=== PATIENT | female | born 1955 | race Caucasian/White ===

== ENCOUNTER 2022-10-02 18:24 | Emergency (ER) | payer OTHER, SELFPAY ==
--- NOTE | ~2022-10-02 | XR_ITS ---
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 RESULT: Lines, tubes, and devices: None. Lungs and pleura: Diffuse reticulonodular opacities. Peripheral right midlung and/or pleural scarrin g, along the minor fissure. Cardiomediastinal silhouette: Stable. Other: No acute osseous or upper abdominal finding. IMPRESSION: Pulmonary opacities may represent chronic or recurrent bronchiolitis, as can be seen with atypical in fection, asthma, aspiration, and small airways disease. Reviewed, dictated and finalized at location [facility]. [facility] SECRETARY IMPRESSION: Pulmonary opacities may represent chronic or recurrent bronchiolitis, as can be seen with atypical infection, asthma, aspiration, and small airways disease.
[2022-10-02 18:33] VITALS: BP 135/84; PULSE 84; RESP 18; TEMP 36.2; O2SAT 98
[2022-10-02 18:35] VITALS: BP 135/84; PULSE 84; RESP 18; TEMP 36.2; O2SAT 95
--- NOTE | 2022-10-02 18:37 | ED.URI ---
HPI - URI/Sore Throat General Chief Complaint: Upper Respiratory Infection Stated Complaint: cough, abody aches, headache Time Seen by Provider: 10/02/22 18:31 Source: patient Mode of arrival: ambulatory Limitations: no limitations History of Present Illness HPI Narrative: 67-year-old female with a history of asthma / COPD artery disease status post stents in 2019, dyslipidemia, hypertension presents to the ER 7 day history of -- cough with mucopurulent sputum -- shortness of breath with wheezing -- headache -- body ache -- fever since yesterday. MD elicited complaint: fever, cough and nasal congestion Pertinent past history: COPD and asthma Onset (ago): day(s) ( started 7 days ago) Consistency: constant Description of mucous: yellow and green Able to tolerate fluids by mouth: Yes Exacerbating factors: nothing Associated symptoms: fever, myalgias, headache, cough and shortness of breath Treatments prior to arrival: other ( Albuterol) Related Data Allergies Allergy/AdvReac Type Severity Reaction Status Date / Time lithium AdvReac Severe Verified 07/17/16 19:01 Bumble Bee AdvReac Severe Anaphylactic Uncoded 07/17/16 19:01 Shock Review of Systems Review of Systems: All systems reviewed & are unremarkable except as noted in HPI and below Constitutional: Constitutional: Reports as per HPI, Reports no additional constitutional complaints, Reports chills, Reports fatigue and Reports fever(s) Eyes: Eyes: Reports as per HPI and Reports no additional eye complaints ENT: Reports system reviewed and no additional complaints, except as documented and Reports as per HPI Cardiovascular: Cardiovascular: Reports as per HPI and Reports no additional cardiovascular complaints Respiratory: Respiratory: Reports as per HPI, Reports no additional respiratory complaints, Reports chest congestion, Reports cough, Reports dyspnea and Reports wheezing Gastrointestinal: Gastrointestinal: Reports as per HPI and Reports no additional gastrointestinal complaints Genitourinary: Genitourinary: Reports no additional female genitourinary complaints and Reports as per HPI Musculoskeletal: Musculoskeletal: Reports no additional musculoskeletal complaints and Reports as per HPI Integumentary/Breasts: Skin/Breast: Reports system reviewed and no additional complaints, except as docu and Reports as per HPI Neurologic: Reports system reviewed and no additional complaints, except as documented and Reports as per HPI Psychiatric: Psychiatric: Reports no additional psychiatric complaints and Reports as per HPI Endocrine: Endocrine: Reports no additional endocrine complaints and Reports as per HPI Hematologic/Lymphatic: Hematologic/Lymphatic: Reports no additional hematologic/lymphatic complaints and Reports as per HPI Allergic/Immunologic: Allergic/Immunologic: Reports no additional allergic/immunologic complaints and Reports as per HPI [facility] Past Medical History Medical History (Updated 10/02/22 @ 20:19 by Sanjiv Garza MD) CAD (coronary artery disease) COPD (chronic obstructive pulmonary disease) Dyslipidemia Hypertension Social History Social History (Updated 10/02/22 @ 18:54 by Sanjiv Garza MD) Smoking packs per day: 1 Smoking cigarettes per day: 20.0 Exam Const: General: ill appearing Nutritional Appearance: obese Orientation/consciousness: patient oriented x3 Limitations: no limitations HENMT: Head: normal to inspection Ears: external ears normal Face/Nose/Sinus: Normal external nose present Face and sinus: normal facial exam Mouth: Yes Normal oral and palatal mucosa present Throat: posterior oropharynx normal Eyes: Conjunctivae: conjunctivae normal Pupils: Equal, round and reactive pupils present EOM: EOMs intact bilaterally Neck: Neck: normal visual inspection, no lymphadenopathy and no meningeal signs Chest: Chest palpation & inspection: normal inspection of the chest and abnormal inspection of the chest
--- NOTE | 2022-10-02 18:55 | ECG_ITS ---
Measurements Intervals [place] Rate: 78 P: 56 NE: 152 QRS: 29 QRSD: 101 T: -7 QT: 381 QTc: 435 Interpretive Statements SINUS RHYTHM NONSPECIFIC ST & T-WAVE ABNORMALITY- ANTEROLAT/INF LEADS BASELINE ARTIFACT- II, III, AVR, AVL, AVF, V4-V6 BORDERLINE ECG NO PREVIOUS ECG AVAILABLE FOR COMPARISON Electronically Signed On 10-02-2022 23:04:45 [employer] REPRESENTATIVE by Ihsan Sanchez D.O.
[2022-10-02 19:22] LABS: Influenza A QL RT-PCR Negative (Negative); Influenza B QL RT-PCR Negative (Negative); RSV RNA, RT-PCR Negative (Negative); SARS-CoV-2 RNA PCR Negative (Negative)
[2022-10-02 19:24] LABS: Basophils Absolute Auto 0.05 K/mm3 (0.00-0.10); Basophils Percent Auto 0.5 % (0.0-1.0); Eosinophils Percent Auto 0.9 % (1.0-6.0); Hematocrit 39.5 % (35.0-42.0); Immature Granulocyte Absolute 0.05 K/mm3 (0.00-0.00); Immature Granulocyte Percent A 0.5 % (0.0-0.0); Lymphocytes Absolute Auto 1.55 K/mm3 (1.10-4.50); Lymphocytes Percent Auto 14.7 % (18.0-42.0); Mean Corpuscular HGB Conc 32.9 g/dL (32.0-36.0); Mean Corpuscular Hemoglobin 30.7 pg (27.0-31.0); Mean Corpuscular Volume 93.4 fL (78.0-102.0); Mean Platelet Volume 8.6 fl (9.2-11.8); Monocytes Absolute Auto 0.46 K/mm3 (0.10-0.90); Monocytes Percent Auto 4.4 % (2.0-11.0); Neutrophils Absolute Auto 8.3 K/mm3 (1.7-7.2); Platelet Count Result 225 K/mm3 (150-420); Red Blood Count 4.23 M/mm3 (4.20-5.40); Red Cell Distribution Width 13.4 % (11.6-14.4); White Blood Count 10.5 K/mm3 (4.8-10.8)
[2022-10-02 19:35] VITALS: BP 141/74; PULSE 89; RESP 20; O2SAT 97
[2022-10-02] MEDS: IPRATROPIUM 0.5 MG/ALBUTEROL SULFATE 2.5 MG AMPUL.NEB 3 ML INHALATION (19:35)
[2022-10-02 19:36] VITALS: PULSE 113; RESP 20; O2SAT 92
[2022-10-02] MEDS: HYDROcodone/acetaminophen (*CRX) 5-325 MG TABLET 1 TAB PO (19:36)
[2022-10-02 19:37] LABS: Prothrombin Time 11.1 Seconds (9.50-12.10)
[2022-10-02 19:42] LABS: Alanine Aminotransferase 12 U/L (14-59); Albumin Level 3.2 g/dL (3.4-5.0); Alkaline Phosphatase 107 U/L (46-116); Anion Gap 8 mmol/L (8-16); Aspartate Amino Transferase 13 U/L (15-37); Bilirubin,Total 0.6 mg/dL (0.00-1.00); Blood Urea Nitrogen 12 mg/dL (7-18); Calcium 8.7 mg/dL (8.5-10.1); Carbon Dioxide 29 mmol/L (21-32); Chloride 100 mmol/L (98-108); Estimated CRCL calculation 48 ml/min; Estimated Glomerular Filt Rate 45; Glucose 148 mg/dL (70-99); Osmolality Calculated 286 mOsm/kg (285-295); Potassium 3.3 mmol/L (3.5-5.1); Sodium 137 mmol/L (136-145); Total Protein 7.4 g/dL (6.4-8.2); Troponin I 6.4 ng/L (0.00-60.4)
[2022-10-02 19:45] LABS: Lactic Acid Reflex 1.5 mmol/L (0.4-2.0)
[2022-10-02 20:01] LABS: NT Pro B Type Natriuretic Pept 364 pg/mL (0-125)
[2022-10-02] MEDS: AZITHROMYCIN 250 MG TABLET 500 MG PO (20:08)
[2022-10-02] MEDS: methylPREDNISolone SOD SUCC 125 MG VIAL IM (20:09)
[2022-10-02] MEDS: POTASSIUM CHLORIDE 20 MEQ TABLET PO (20:14)
--- NOTE | 2022-10-12 22:06 | PC.NURSE ---
FINAL BLOOD CULTURE RESULTS X 2: NO GROWTH AFTER 5 DAYS. NO ACTION NEEDED
== END 2022-10-02 20:26 | disposition home or self-care (01) ==
PROVIDERS: Emergency Provider Internal Medicine Critical Care Medicine
DX: J44.1 Chronic obstructive pulmonary disease with (acute) exacerbation (principal); N28.9 Disorder of kidney and ureter, unspecified; Z20.822 Contact with and (suspected) exposure to COVID-19
CPT/HCPCS: 36415; 71045; 80053; 83605; 83880; 84484; 85025; 85610; 87040; 87637; 93005; 94640; 96372; 99284; A9270; J2930

== ENCOUNTER 2022-10-12 13:38 | Emergency (ER) | payer OTHER, SELFPAY ==
[2022-10-12] VITALS (8 sets, daily range): BP systolic 116–124; BP diastolic 62–78; PULSE 63–73; RESP 16–22; TEMP 36.9–37.1; O2SAT 93–98
--- NOTE | ~2022-10-12 | XR_ITS ---
EXAMINATION: XR chest 1V portable 10/12/2022 14:23 INDICATION: Chest pain PROCEDURE: AP portable chest COMPARISON: 10/02/2022 FINDINGS: The lungs are clear. The cardiomediastinal silhouette is within normal limits. There are no pleural effusions. There is no pneumothorax suspected. IMPRESSION: 1: NO ACUTE CARDIOPULMONARY DISEASE. Reviewed, dictated and finalized at location [facility]. [employer]
--- NOTE | 2022-10-12 13:51 | ECG_ITS ---
Measurements Intervals [place] Rate: 64 P: 71 WA: 155 QRS: 59 QRSD: 100 T: 58 QT: 409 QTc: 423 Interpretive Statements SINUS RHYTHM NONSPECIFIC T-WAVE ABNORMALITY COMPARED TO ECG 10/02/2022 19:06:55 NO SIGNIFICANT DIFFERENCE Electronically Signed On 10-12-2022 17:32:32 [employer]IP [employer]STER by Ceasar Morse M.D.
--- NOTE | 2022-10-12 14:38 | ED.GENADULT ---
HPI - General Adult General Chief complaint: Chest Pain Stated complaint: Ambulance History of Present Illness HPI narrative: The patient is a 67-year-old woman with coronary artery disease status post 2 stents, COPD on inhalers, smoker, hypertension, hyperlipidemia, GERD on omeprazole 20 mg p.o. b.i.d.. On 10/02/2022, she was evaluated in the emergency room and was diagnosed with bronchitis, treated with antibiotics and steroids. She has completed that course. She now presents with substernal epigastric chest discomfort onset 12:30 p.m., lasted approximately 30 minutes till approximately 1:00 p.m., nonradiating, not associated with nausea or vomiting or diaphoresis or pleuritic component of the chest pain. Does have a chronic smoker's cough but no change in the cough. No fevers or chills or diaphoresis or rhinorrhea or nasal congestion or sore throat. No urinary symptoms. The patient took 2 nitroglycerin tablets and 4 baby aspirin tablets per EMS and her pain has now resolved. She had a minor headache that also has resolved. Related Data Allergies Allergy/AdvReac Type Severity Reaction Status Date / Time lithium AdvReac Severe Verified 07/17/16 19:01 Bumble Bee AdvReac Severe Anaphylactic Uncoded 07/17/16 19:01 Shock Review of Systems Review of Systems: All systems reviewed & are unremarkable except as noted in HPI and below Constitutional: Constitutional: Reports no additional constitutional complaints, Denies anorexia, Denies body ache(s), Denies chills, Denies excessive sweating, Denies fatigue, Denies fever(s), Denies frequent falls, Denies headache(s), Denies malaise and Denies poor appetite Eyes: Eyes: Reports no additional eye complaints, Denies blurry vision, Denies change in vision, Denies irritation, Denies itchy eyes and Denies photophobia ENT: Reports system reviewed and no additional complaints, except as documented, Reports Normal hearing present, Denies change in voice, Denies dysphagia, Denies vertigo, Denies dizziness, Denies ear discharge, Denies headache(s), Denies hearing loss, Denies hoarseness, Denies nasal congestion, Denies neck pain, Denies sinus pressure, Denies sore throat and Denies throat swelling Cardiovascular: Cardiovascular: Reports no additional cardiovascular complaints, Reports chest pain, Denies syncope, Denies rapid heart rate, Denies irregular heart rhythm, Denies leg edema, Denies dyspnea and Denies slow heart rate Respiratory: Respiratory: Reports no additional respiratory complaints, Reports cough, Denies dyspnea, Denies stridor and Denies wheezing Gastrointestinal: Gastrointestinal: Reports no additional gastrointestinal complaints, Denies abdominal pain, Denies melena, Denies hematochezia, Denies dysphagia, Denies diarrhea, Denies nausea and Denies vomiting Genitourinary: Genitourinary: Denies hematuria, Denies urinary frequency, Denies dysuria, Denies flank pain and Denies urinary urgency Musculoskeletal: Musculoskeletal: Reports no additional musculoskeletal complaints, Denies abnormal gait, Denies back pain, Denies myalgias, Denies arthralgias, Denies joint swelling, Denies limited range of motion, Denies muscle cramps, Denies muscle weakness, Denies neck pain and Denies numbness Integumentary/Breasts: Skin/Breast: Reports system reviewed and no additional complaints, except as docu, Denies breast pain, Denies change in pigmentation, Denies pruritus, Denies erythema and Denies wounds Neurologic: Reports system reviewed and no additional complaints, except as documented, Reports Normal hearing present, Denies Abnormal speech present, Denies abnormal gait, Denies confusion, Denies vertigo, Denies dizziness, Denies syncope, Denies frequent falls, Denies headache(s), Denies focal weakness, Denies numbness and Denies paresthesias Psychiatric: Psychiatric: Reports no additional psychiatric complaints and Denies confusion Endocrine: Endocrine: Reports no additional endocrine complaints, Denies
[2022-10-12 14:44] LABS: Basophils Absolute Auto 0.05 K/mm3 (0.00-0.10); Basophils Percent Auto 0.6 % (0.0-1.0); Eosinophils Absolute Auto 0.11 K/mm3 (0.02-0.50); Eosinophils Percent Auto 1.3 % (1.0-6.0); Hematocrit 37.4 % (35.0-42.0); Hemoglobin 12.2 g/dL (11.7-13.8); Immature Granulocyte Absolute 0.07 K/mm3 (0.00-0.00); Immature Granulocyte Percent A 0.8 % (0.0-0.0); Lymphocytes Absolute Auto 2.05 K/mm3 (1.10-4.50); Lymphocytes Percent Auto 24.4 % (18.0-42.0); Mean Corpuscular HGB Conc 32.6 g/dL (32.0-36.0); Mean Corpuscular Hemoglobin 30.3 pg (27.0-31.0); Monocytes Absolute Auto 0.54 K/mm3 (0.10-0.90); Monocytes Percent Auto 6.4 % (2.0-11.0); Neutrophils Absolute Auto 5.6 K/mm3 (1.7-7.2); Neutrophils Percent Auto 66.5 % (50.0-70.0); Platelet Count Result 254 K/mm3 (150-420); Red Blood Count 4.02 M/mm3 (4.20-5.40); Red Cell Distribution Width 13.7 % (11.6-14.4); White Blood Count 8.4 K/mm3 (4.8-10.8)
[2022-10-12 15:02] LABS: Alanine Aminotransferase 15 U/L (14-59); Albumin Level 3.1 g/dL (3.4-5.0); Alkaline Phosphatase 88 U/L (46-116); Anion Gap 7 mmol/L (8-16); Aspartate Amino Transferase 14 U/L (15-37); Bilirubin,Total 0.6 mg/dL (0.00-1.00); Blood Urea Nitrogen 11 mg/dL (7-18); Calcium 8.3 mg/dL (8.5-10.1); Carbon Dioxide 28 mmol/L (21-32); Chloride 104 mmol/L (98-108); Estimated CRCL calculation 48 ml/min; Estimated Glomerular Filt Rate 48; Glucose 113 mg/dL (70-99); Osmolality Calculated 288 mOsm/kg (285-295); Potassium 3.6 mmol/L (3.5-5.1); Sodium 139 mmol/L (136-145); Total Protein 6.6 g/dL (6.4-8.2)
--- NOTE | 2022-10-12 15:03 | PC.NURSE ---
pt removing monitoring device, states im going home . explained awaiting lab results. pt states doctor said i was going home. explained would check with erp.
--- NOTE | 2022-10-12 15:10 | PC.NURSE ---
discussed discharge iwth dr carnes, explained to pt awaiting lab results, pt getting dressed. voiced understanding
== END 2022-10-12 16:13 | disposition home or self-care (01) ==
PROVIDERS: Emergency Provider Emergency Medicine
DX: R07.9 Chest pain, unspecified (principal); K21.9 Gastro-esophageal reflux disease without esophagitis; I25.10 Atherosclerotic heart disease of native coronary artery without angina pectoris; J44.9 Chronic obstructive pulmonary disease, unspecified; E78.5 Hyperlipidemia, unspecified; I10 Essential (primary) hypertension; F17.200 Nicotine dependence, unspecified, uncomplicated
CPT/HCPCS: 36415; 71045; 80053; 84484; 85025; 93005; 99284

== ENCOUNTER 2022-11-08 23:14 | Emergency (ER) | payer OTHER, SELFPAY ==
[2022-11-08 23:15] VITALS: BP 150/75; PULSE 94; RESP 20; TEMP 36.5; O2SAT 97
--- NOTE | 2022-11-08 23:38 | ED.GENADULT ---
HPI - General Adult General Chief complaint: Shortness of Breath/Dyspnea Stated complaint: shortness of breath Source: patient Mode of arrival: ambulatory Limitations: no limitations History of Present Illness HPI narrative: this is a 67-year-old female who presents with anxiety, which she states is that her nerves, with no initially she stated she was mildly short of breath she denies being short of breath with no chest pain no abdominal pain no dysuria no thoughts of suicide has a history of anxiety and depression with no fever chills no nausea vomiting no diarrhea constipation. Onset (ago): week(s) Related Data Home Medications Medication Instructions Recorded Confirmed atorvastatin 80 mg tablet 80 mg PO DAILY 11/08/22 11/08/22 budesonide-formoterol HFA 160 puff inhalation DAILY 11/08/22 mcg-4.5 mcg/actuation aerosol inhaler (Symbicort) carvedilol 3.125 mg tablet 3.125 mg PO DAILY 11/08/22 11/08/22 cetirizine 10 mg tablet 10 mg PO DAILY 11/08/22 11/08/22 clorazepate dipotassium 7.5 mg 7.5 mg PO DAILY 11/08/22 11/08/22 tablet famotidine 20 mg tablet 20 mg PO DAILY 11/08/22 11/08/22 fluoxetine 40 mg capsule 40 mg PO DAILY 11/08/22 11/08/22 fluticasone propionate 220 1 puff inhalation PRN PRN 11/08/22 11/08/22 mcg/actuation HFA aerosol inhaler Shortness Of Breath Or Wheezing (Flovent HFA) hydrochlorothiazide 25 mg tablet 25 mg PO DAILY 11/08/22 11/08/22 ipratropium 0.5 mg-albuterol 3 mg 3 ml inhalation Q6H PRN Shortness 11/08/22 11/08/22 (2.5 mg base)/3 mL nebulization Of Breath Or Wheezing soln losartan 25 mg tablet 25 mg PO DAILY 11/08/22 11/08/22 montelukast 10 mg tablet 10 mg PO DAILY 11/08/22 11/08/22 omeprazole 40 mg capsule,delayed 40 mg PO DAILY 11/08/22 11/08/22 release sumatriptan succinate 50 mg tablet mg PO 11/08/22 Allergies Allergy/AdvReac Type Severity Reaction Status Date / Time lithium AdvReac Severe Verified 07/17/16 19:01 Bumble Bee AdvReac Severe Anaphylactic Uncoded 07/17/16 19:01 Shock Review of Systems Review of Systems: All systems reviewed & are unremarkable except as noted in HPI and below PMFSH Past Medical History Medical History CAD (coronary artery disease) COPD (chronic obstructive pulmonary disease) Dyslipidemia Hypertension Social History Social History Smoking packs per day: 1 Smoking cigarettes per day: 20.0 Exam Const: General: healthy appearing and no acute distress Nutritional Appearance: well nourished Orientation/consciousness: patient oriented x3 Limitations: no limitations HENMT: Head: normal to inspection Eyes: Conjunctivae: conjunctivae normal Pupils: Equal, round and reactive pupils present EOM: EOMs intact bilaterally Direct Ophthalmoscopy: no photophobia Neck: Neck: normal visual inspection Chest: Chest palpation & inspection: normal inspection of the chest Resp: Effort & Inspection: normal respiratory effort Auscultation: clear to auscultation bilaterally Cardio: Rate: regular rate Rhythm: regular rhythm GI: GI Palp: Yes Soft to palpation Auscultation: normal bowel sounds : General: Yes bladder normal to palpation Skin: General skin exam: normal color Rashes: no rashes Neuro: General: patient oriented x3 and moves all extremities Cranial nerves: Yes Nystagmus not present Speech: normal speech Extrem: General: normal to inspection Psych: Affect: Anxious affect present Course Course Emergency Course: Patient appears comfortable as far as her breathing is concerned with no chest pain patient states that she has anxious and needs to find a way to get to [place] so she can be admitted to the 2nd floor. He denies any thoughts of suicide does appear anxious and patient received a dose of Xanax. Critical Care Time Critical Care Time Critical Care Time: No Discharge Plan Discharge Clini
--- NOTE | 2022-11-08 23:45 | PC.NURSE ---
Upon ERP Dr Barber assessment, pt reports wanting to be transferred to [facility] by ambulance because she has no way of getting there to see her psychiatric Dr that prescribes here medicine. This RN spoke c pt. about transfers and need for a transfer. She states she called them before coming here and they told her they have beds for her if needed. Again asked pt is she had any SI/HI and she stated no of course not . Pt wanting her Prozac and Tranxene meds for her anxiety and nervousness, she reports she is out of these medications. Info given to Dr. Barber, POC discussed c pt. and medication refill will be given for pickup in AM. Explained to pt. that ERP will Rx some of her meds tonight and that she will have to call for f/u c her FMD or specilaty Drs. in AM. Pt verbalized understanding.
[2022-11-08] MEDS: ALPRAZolam (*CRX) 0.5 MG TABLET PO (23:49)
[2022-11-08] MEDS: FLUoxetine HCL 20 MG CAPSULE PO (23:54)
[2022-11-09 00:02] VITALS: BP 146/74; PULSE 87; RESP 20; TEMP 36.6; O2SAT 98
== END 2022-11-09 00:11 | disposition home or self-care (01) ==
PROVIDERS: Emergency Provider Emergency Medicine
DX: F41.9 Anxiety disorder, unspecified (principal); F32.A Depression, unspecified; R06.02 Shortness of breath; J44.9 Chronic obstructive pulmonary disease, unspecified; I25.10 Atherosclerotic heart disease of native coronary artery without angina pectoris; I10 Essential (primary) hypertension; E78.5 Hyperlipidemia, unspecified; F17.210 Nicotine dependence, cigarettes, uncomplicated; Z79.51 Long term (current) use of inhaled steroids
CPT/HCPCS: 99283; A9270

== ENCOUNTER 2025-03-27 12:40 | Emergency (ER) | payer OTHER, SELFPAY ==
[2025-03-27] VITALS (8 sets, daily range): BP systolic 99–122; BP diastolic 60–83; PULSE 64–71; RESP 16–18; TEMP 36.6; O2SAT 96–99
--- NOTE | ~2025-03-27 | XR_ITS ---
EXAMINATION: XR chest 1V portable DATE: 03/27/2025 13:03 INDICATION: Chest pain and shortness of breath TECHNIQUE: frontal view of the chest was obtained. COMPARISON: Chest radiograph dated 10/22/2022 FINDINGS: The lungs are clear with no focal airspace opacities, pulmonary edema, pleural effusion or pneumothor ax. The cardiomediastinal silhouette is normal. IMPRESSION: 1. No acute cardiopulmonary disease. Reviewed, dictated and finalized at location A.
--- NOTE | ~2025-03-27 | CT_ITS ---
CTA chest PE protocol Ordering provider: Ceasar Barber MD History: 70 years Female with . shortness of breath with elevated d-dimer . Comparison: None. Technique: CT angiogram chest was performed following timed intravenous injection of contrast. Thin s lice axial images and reformatted coronal images were obtained. Three dimensional reformatted images of the chest were also obtained using a [employer] workstation. . Automated exposure control and iterati ve reconstruction technique were employed. The dose-length product was 709.00 mGy-cm. 100 mL Omnipaqu e 350 was given IV. Findings: PULMONARY ARTERIES: No pulmonary embolus. VISUALIZED THORACIC INLET: Normal. MEDIASTINUM: Aorta/coronary arteries: Mild atheromatous disease. Heart/other: The heart is not enlarged. Lymph nodes: No mediastinal or hilar adenopathy. LUNGS: Emphysematous changes mainly affecting the upper lobes. Dependent atelectatic changes. No pulmonary n odules or masses. No infiltrates or effusions. No pneumothorax. VISUALIZED UPPER ABDOMEN: Calcified hematoma or cyst seen in the spleen. Multiple cysts in the left k idney. 1.5 x 1.6 cm Soft tissue density is seen in the inferior pole of the left kidney which may be hemorrhagic cyst. Follow-up to exclude a mass is advised. Tiny cysts in the right kidney. Otherwise, the visualized upper abdomen is normal. MUSCULOSKELETAL: Soft tissues: The superficial soft tissues are normal. Bones: Kyphosis with chronic T6 compression fracture. Old healed fracture of the sternum is also note d. Age appropriate degenerative changes of the spine. Multiple healing left hemithorax rib fractures. IMPRESSION: 1. No pulmonary embolism. 2. No acute cardiopulmonary pathology. 3. Emphysematous changes affecting mainly the upper lobes. 4. Subcapsular Calcified hematoma or a cyst in the spleen. 5. Soft tissue density in the left kidney lower pole which may be hemorrhagic cyst or a mass. Follow -up advised. Reviewed, dictated and finalized at location A. IMPRESSION: 1. No pulmonary embolism. 2. No acute cardiopulmonary pathology. 3. Emphysematous changes affecting mainly the upper lobes. 4. Subcapsular Calcified hematoma or a cyst in the spleen. 5. Soft tissue density in the left kidney lower pole which may be hemorrhagic cyst or a mass. Follow-up advised.
--- NOTE | 2025-03-27 12:43 | ECG_ITS ---
Test Date: 2025-03-27 12:49:41 Measurements Intervals [place] Rate: 66 P: 42 TN: 166 QRS: 49 QRSD: 84 T: 68 QT: 376 QTc: 395 Interpretive Statements SINUS RHYTHM NONSPECIFIC T-WAVE ABNORMALITY No previous ECG available for comparison Electronically Signed On 03-27-2025 17:18:18 CDT by Uli Arteaga M.D.
[2025-03-27] MEDS: SODIUM CHLORIDE 0.9% IV 1,000 ML 999 ML IV CONT (13:00)
[2025-03-27 13:30] LABS: Basophils Absolute Auto 0.07 K/mm3 (0.00-0.10); Eosinophils Absolute Auto 0.25 K/mm3 (0.02-0.50); Eosinophils Percent Auto 3.6 % (1.0-6.0); Hematocrit 37.8 % (35.0-42.0); Hemoglobin 12.3 g/dL (11.7-13.8); Immature Granulocyte Absolute 0.04 K/mm3 (0.00-0.00); Immature Granulocyte Percent A 0.6 % (0.0-0.0); Lymphocytes Absolute Auto 2.07 K/mm3 (1.10-4.50); Mean Corpuscular HGB Conc 32.5 g/dL (32-36); Mean Corpuscular Volume 92.2 fL (78.0-102.0); Mean Platelet Volume 8.3 fl (9.2-11.8); Monocytes Absolute Auto 0.47 K/mm3 (0.10-0.90); Monocytes Percent Auto 6.8 % (2.0-11.0); Neutrophils Absolute Auto 4.01 K/mm3 (1.70-7.20); Platelet Count Result 240 K/mm3 (150-420); Red Cell Distribution Width 13.1 % (11.6-14.4); White Blood Count 6.9 K/mm3 (4.8-10.8)
[2025-03-27 13:43] LABS: Add Urine Microscopic? NO; Appearance Urine Clear (Clear); Bilirubin Urine Negative (Negative); Blood Urine Negative (Negative); Color Urine Light Yellow (Yellow); Glucose Urine UA Negative (Negative); Ketones Urine Negative (Negative); Leukocyte Esterase Ur Negative LEU/UL (Negative); Nitrate Urine Negative (Negative); Protein Urine Negative (Negative); Specific Grav Ur 1.025 (1.010-1.020); Urobilinogen Urine 0.2 mg/dL (0.2-1.0); pH Urine 5.5 (5.0-8.0)
[2025-03-27 13:43] LABS: Partial Thromboplastin Time 23.9 Sec (23.9-30.70); Prothrombin Time 10.6 Seconds (9.50-12.1)
[2025-03-27 13:44] LABS: Alanine Aminotransferase 15 U/L (6-35); Alkaline Phosphatase 82 U/L (38-126); Anion Gap 7 mmol/L (4-12); Aspartate Amino Transferase 24 U/L (14-36); Bilirubin,Total 0.6 mg/dL (0.2-1.3); Blood Urea Nitrogen 33 mg/dL (7-17); Calcium 8.8 mg/dL (8.4-10.2); Carbon Dioxide 21 mmol/L (22-30); Chloride 108 mmol/L (98-107); Estimated CRCL calculation 36 ml/min; Estimated Glomerular Filt Rate 36; Glucose 89 mg/dL (65-110); Lipase 195 U/L (23-300); Osmolality Calculated 288 mOsm/kg (285-295); Potassium 4.3 mmol/L (3.4-5.0); Sodium 136 mmol/L (137-145)
[2025-03-27 13:44] LABS: Lactic Acid Reflex 0.7 mmol/L (0.4-2.0)
[2025-03-27 13:55] LABS: NT Pro B Type Natriuretic Pept 133 pg/mL (19.9-100); Troponin I < 0.012 ng/mL (0.000-0.034)
[2025-03-27 13:57] LABS: D Dimer 1.24 mg/L (0.19-0.50)
[2025-03-27 14:07] LABS: Influenza A QL RT-PCR Negative (Negative); Influenza B QL RT-PCR Negative (Negative); RSV RNA, RT-PCR Negative (Negative); SARS-CoV-2 RNA PCR Negative (Negative)
--- NOTE | 2025-03-27 14:27 | PC.NURSE ---
Patient being taken down to radiology.
[2025-03-27] MEDS: ACETAMINOPHEN 325 MG TABLET 650 MG PO (14:58)
--- NOTE | 2025-03-27 15:24 | ED_ITS ---
HPI - Chest Pain General Chief Complaint: Chest Pain Stated Complaint: chest pain Time Seen by Provider: 03/27/25 12:42 Source: patient and EMS Mode of arrival: ambulatory Limitations: no limitations History of Present Illness HPI narrative: this is a 70-year-old female with history of coronary artery disease with stents presents via EMS with some chest discomfort with shortness of breath symptoms started 2 days ago and has been worse today and patient called EMS. Currently the patient denies any chest pain but did have some mild shortness of breath with no cough or congestion no fever chills no nausea vomiting no abdominal pain no diarrhea or constipation. MD complaint: chest discomfort Pertinent past history: coronary artery disease Onset (ago): day(s) Timing of current episode: episodic and now resolved Prior episodes: Yes Onset: during rest Pain location: substernal Pain radiation: none Severity: mild Quality: aching Related Data Home Medications ?Medication ?Instructions ?Recorded ?Confirmed ?Last Taken ?Type atorvastatin 80 mg tablet 80 mg PO DAILY 11/08/22 11/08/22 Unknown History budesonide-formoterol HFA 160 puff inhalation DAILY 11/08/22 Unknown History mcg-4.5 mcg/actuation aerosol inhaler (Symbicort) carvedilol 3.125 mg tablet 3.125 mg PO DAILY 11/08/22 11/08/22 Unknown History cetirizine 10 mg tablet 10 mg PO DAILY 11/08/22 11/08/22 Unknown History clorazepate dipotassium 7.5 mg 7.5 mg PO DAILY 11/08/22 11/08/22 Unknown History tablet famotidine 20 mg tablet 20 mg PO DAILY 11/08/22 11/08/22 Unknown History fluoxetine 40 mg capsule 40 mg PO DAILY 11/08/22 11/08/22 Unknown History fluticasone propionate 220 1 puff inhalation PRN PRN 11/08/22 11/08/22 Unknown History mcg/actuation HFA aerosol inhaler Shortness Of Breath Or Wheezing (Flovent HFA) hydrochlorothiazide 25 mg tablet 25 mg PO DAILY 11/08/22 11/08/22 Unknown History ipratropium 0.5 mg-albuterol 3 mg 3 ml inhalation Q6H PRN Shortness 11/08/22 11/08/22 Unknown History (2.5 mg base)/3 mL nebulization Of Breath Or Wheezing soln losartan 25 mg tablet 25 mg PO DAILY 11/08/22 11/08/22 Unknown History montelukast 10 mg tablet 10 mg PO DAILY 11/08/22 11/08/22 Unknown History omeprazole 40 mg capsule,delayed 40 mg PO DAILY 11/08/22 11/08/22 Unknown History release sumatriptan succinate 50 mg tablet mg PO 11/08/22 Unknown History Allergies Allergy/AdvReac Type Severity Reaction Status Date / Time lithium AdvReac Severe Unconscious Verified 03/27/25 12:44 Bumble Bee AdvReac Severe Anaphylactic Uncoded 03/27/25 12:44 Shock Review of Systems 2 Review of Systems: All systems reviewed & are unremarkable except as noted in HPI and below PMFSH Past Medical History Medical History Hypertension Dyslipidemia CAD (coronary artery disease) COPD (chronic obstructive pulmonary disease) Social History Social History Smoking packs per day: 1 Smoking cigarettes per day: 20.0 Exam 2 Const: General: healthy appearing and no acute distress Nutritional Appearance: well nourished and obese Orientation/consciousness: patient oriented x3 Limitations: no limitations HENMT: Head: normal to inspection Neck: Neck: normal visual inspection, no lymphadenopathy and no meningeal signs Chest: Chest palpation & inspection: normal inspection of the chest Resp: Effort & Inspection: normal respiratory effort Auscultation: clear to auscultation bilaterally Cardio: Rate: regular rate Rhythm: regular rhythm GI: GI Palp: Yes Soft to palpation Auscultation: normal bowel sounds : General: Yes bladder normal to palpation Skin: General skin exam: normal color Rashes: no rashes Neuro: General: patient oriented x3, moves all extremities, no meningeal signs and no focal motor deficits Course Course Emergency Course: Patient presented via EMS with some some chest discomfort and shortness of breath troponins negative EKG shows normal sinus rhythm with no ST or T changes patient had an elevated D-dimer CT scan performed shows no pulmonary embolism does show COPD changes but patient O2 sats at 99% on room air. A serum sodium of 136 patient received IV fluids. White count was within normal range patient asking for food and something to drink and has been walking to the bathroom with some no problems. CTA showed no pulmonary embolism patient stable for discharge. Vital Signs Vital signs: Vital Signs Pulse Oximetry 97 03/27/25 12:47 Oxygen Delivery Room Air 03/27/25 12:47 Temperature 36.6 C 03/27/25 12:54 Pulse Rate 68 03/27/25 12:54 Respiratory Rate 16 03/27/25 12:54 Blood Pressure 99/68 L 03/27/25 12:54 Pulse Oximetry 99 03/27/25 12:54 Oxygen Delivery Room Air 03/27/25 12:54 MDM - Chest Pain Lab Data 03/27/25 13:23 03/27/25 13:25 Labs: Lab Results 03/27/25 03/27/25 Range/Units 13:23 13:25 WBC 6.9 (4.8-10.8) K/mm3 RBC 4.10 L (4.20-5.40) M/mm3 Hgb 12.3 (11.7-13.8) g/dL Hct 37.8 (35.0-42.0) % MCV 92.2 (78.0-102.0) fL MCH 30.0 (27.0-31.0) pg MCHC 32.5 (32-36) g/dL RDW 13.1 (11.6-14.4) % Plt Count 240 (150-420) K/mm3 MPV 8.3 L (9.2-11.8) fl Immature Gran % (Auto) 0.6 H (0.0-0.0) % Neut % (Auto) 58.0 (50.0-70.0) % Lymph % (Auto) 30.0 (18.0-42.0) % [place] % (Auto) 6.8 (2.0-11.0) % Eos % (Auto) 3.6 (1.0-6.0) % Baso % (Auto) 1.0 (0.0-1.0) % Lymph # (Auto) 2.07 (1.10-4.50) K/mm3 [place] # (Auto) 0.47 (0.10-0.90) K/mm3 Eos # (Auto) 0.25 (0.02-0.50) K/mm3 Baso # (Auto) 0.07 (0.00-0.10) K/mm3 Abs Immat Gran (auto) 0.04 H (0.00-0.00) K/mm3 Absolute Neuts (auto) 4.01 (1.70-7.20) K/mm3 Absolute Nucleated RBC 0.00 (0.00-0.00) K/mm3 Nucleated RBC % 0.0 (0-0.0) % PT 10.6 (9.50-12.1) Seconds INR 1.0 APTT 23.9 (23.9-30.70) Sec D-Dimer 1.24 H* (0.19-0.50) mg/L Sodium 136 L (137-145) mmol/L Potassium 4.3 (3.4-5.0) mmol/L Chloride 108 H (98-107) mmol/L Carbon Dioxide 21 L (22-30) mmol/L Anion Gap 7 (4-12) mmol/L BUN 33 H (7-17) mg/dL Creatinine 1.45 H (0.7-1.0) mg/dL Estim Creat Clear Calc 36 ml/min Estimated GFR 36 L (59 - ) Glucose 89 (65-110) mg/dL Calculated Osmolality 288 (285-295) mOsm/kg Lactic Acid 0.7 (0.4-2.0) mmol/L Calcium 8.8 (8.4-10.2) mg/dL Total Bilirubin 0.6 (0.2-1.3) mg/dL AST 24 (14-36) U/L ALT 15 (6-35) U/L Alkaline Phosphatase 82 (38-126) U/L Troponin I < 0.012 (0.000-0.034) ng/mL NT-Pro-B Natriuret Pep 133 H (19.9-100) pg/mL Total Protein 7.0 (6.3-8.2) g/dL Albumin 4.0 (3.5-5.1) g/dL Lipase 195 (23-300) U/L Urine Color Light yellow (Yellow) Urine Appearance Clear (Clear) Urine pH 5.5 (5.0-8.0) Ur Specific [place] 1.025 H (1.010-1.020) Urine Protein Negative (Negative) Urine Glucose (UA) Negative (Negative) Urine Ketones Negative (Negative) Ur Blood (Man) Negative (Negative) Urine Nitrate Negative (Negative) Urine Bilirubin Negative (Negative) Urine Urobilinogen 0.2 (0.2-1.0) mg/dL Leukocyte Esterase Rfl Negative (Negative) TOSIN/UL Influenza A (RT-PCR) Negative (Negative) Influenza B (RT-PCR) Negative (Negative) RSV (RT-PCR) Negative (Negative) SARS-CoV-2 RNA (RT-PCR) Negative (Negative) Critical Care Time Critical Care Time Critical Care Time: No Discharge Plan Discharge Clinical Impression: Atypical chest pain COPD (chronic obstructive pulmonary disease) Qualifiers: COPD type: unspecified COPD Qualified Code(s): J44.9 - Chronic obstructive pulmonary disease, unspecified Patient Disposition: Home Condition: Stable Instructions: Antibiotic Form, Emphysema (ED), Chronic Bronchitis (ED), Chest Wall Pain (ED) Additional Instructions: advised patient to take medication as prescribed and to follow with primary care physician within 1 week for further evaluation treatment. Patient Language: Portuguese Prescriptions: New azithromycin [Zithromax Z-Jose] 250 mg tablet See Rx Instructions .ROUTE .COMPLEX Qty: 6 0RF Rx Instructions: For 250 mg dose pack: take 500 mg today (day 1), then 250 mg for 4 days (days 2-5) No Action albuterol sulfate 90 mcg/actuation HFA aerosol inhaler 2 puff inhalation QID PRN (Reason: shortness of breath or wheezing) Qty: 8.5 0RF sucralfate [Carafate] 1 gram tablet 1 g PO BID 30 Days Qty: 60 0RF fluoxetine 40 mg capsule 40 mg PO DAILY atorvastatin 80 mg tablet 80 mg PO DAILY cetirizine 10 mg tablet 10 mg PO DAILY sumatriptan succinate 50 mg tablet PO omeprazole 40 mg capsule,delayed release(DR/EC) 40 mg PO DAILY carvedilol 3.125 mg tablet 3.125 mg PO DAILY famotidine 20 mg tablet 20 mg PO DAILY losartan 25 mg tablet 25 mg PO DAILY montelukast 10 mg tablet 10 mg PO DAILY fluticasone propionate [Flovent HFA] 220 mcg/actuation HFA aerosol inhaler 1 puff INHALATION PRN PRN (Reason: Shortness Of Breath Or Wheezing) hydrochlorothiazide 25 mg tablet 25 mg PO DAILY clorazepate dipotassium 7.5 mg tablet 7.5 mg PO DAILY budesonide-formoterol [Symbicort] 160-4.5 mcg/actuation HFA aerosol inhaler INHALATION DAILY ipratropium-albuterol 0.5 mg-3 mg(2.5 mg base)/3 mL solution for nebulization 3 ml inhalation Q6H PRN (Reason: Shortness Of Breath Or Wheezing) fluoxetine 40 mg capsule 40 mg PO DAILY Qty: 30 0RF clorazepate dipotassium 7.5 mg tablet 7.5 mg PO BID PRN (Reason: anxiety) Qty: 20 0RF Follow-up/Referrals: Daina,Jonathan Mcmahan NP [Primary Care Provider] - Time of Disposition: 15:29
--- NOTE | 2025-03-27 15:25 | PC.NURSE ---
patient back in room from bathroom. refuses to let RN apply monitor, states she wants to lay down and take a nap, requesting lights off and warm blanket.
--- NOTE | 2025-03-29 12:53 | PC.NURSE ---
Preliminary blood culture report; no growth to date.
--- NOTE | 2025-04-03 13:05 | PC.NURSE ---
final blood cultures x2 reviewed. no growth after 5 days. no change in plan of care
== END 2025-03-27 15:35 | disposition home or self-care (01) ==
PROVIDERS: Emergency Provider Emergency Medicine; PCP Nurse Practitioner Family
DX: J44.9 Chronic obstructive pulmonary disease, unspecified (principal); R07.89 Other chest pain; I25.10 Atherosclerotic heart disease of native coronary artery without angina pectoris; I10 Essential (primary) hypertension; E78.5 Hyperlipidemia, unspecified; F17.210 Nicotine dependence, cigarettes, uncomplicated
CPT/HCPCS: 36415; 71045; 71275; 80053; 81003; 83605; 83690; 83880; 84484; 85025; 85380; 85610; 85730; 87040; 87637; 93005; 96360; 99284; A9270; J7030; Q9967

== ENCOUNTER 2025-04-26 01:07 | Emergency (ER) | payer OTHER, SELFPAY ==
[2025-04-26] VITALS (7 sets, daily range): BP systolic 110; BP diastolic 72; PULSE 63–73; RESP 17; TEMP 35.9; O2SAT 100
--- NOTE | ~2025-04-26 | CT_ITS ---
Clinical Indication: Chest pain radiating to back CT Scan of the Chest with Contrast: Technique: Contiguous sections were acquired throughout the chest after intravenous administration of 100 cc of Omnipaque 350. Dose reduction technique was used on this scan by utilizing automated expos ure control and iterative reconstruction technique. The dose-length product (DLP) was 644.97 mGy-cm. COMPARISON: 03/27/2025 Findings: There is no evidence of any significant mediastinal, hilar or axillary lymphadenopathy. There is no f illing defect in the pulmonary arterial tree to suggest pulmonary embolus. There is no evidence of ao rtic dissection or aneurysm. There is no evidence of pleural or pericardial effusion. The lungs are clear. No pulmonary nodules or infiltrates are noted. Advanced emphysema present. Images through the upper abdomen reveal stable exophytic peripherally calcified splenic cystic mass. Stable severe T6 compression deformity. Stable mild T11 compression deformity.. Impression: No evidence of pulmonary embolus, aortic dissection, or aortic aneurysm. Advanced emphysema. Stable compression fracture deformities of T6 and T11, as detailed above. Reviewed, dictated and finalized at location . Impression: No evidence of pulmonary embolus, aortic dissection, or aortic aneurysm. Advanced emphysema. Stable compression fracture deformities of T6 and T11, as detailed above.
--- NOTE | 2025-04-26 01:09 | ECG_ITS ---
Test Date: 2025-04-26 01:12:41 Measurements Intervals [place] Rate: 70 P: 68 CO: 162 QRS: 53 QRSD: 90 T: 77 QT: 374 QTc: 405 Interpretive Statements SINUS RHYTHM MINIMAL Q WAVES- INFERIOR LEADS BASELINE ARTIFACT- I, II, III, AVR, AVL, AVF BORDERLINE ECG Compared to ECG 03/27/2025 12:49:41 NO SIGNIFICANT CHANGE Electronically Signed On 04-26-2025 07:14:06 CDT by Ihsan Sanchez D.O.
--- NOTE | 2025-04-26 01:11 | ED_ITS ---
HPI - General Adult General Chief complaint: Chest Pain Stated complaint: chest pain Time Seen by Provider: 04/26/25 01:09 History of Present Illness HPI narrative: Beverly is a 70F with a PMH of COPD, CAD, HTN, and migraines that presented to the ED via EMS for chest pain. It is mid chest, substernal chest pain that radiates to the back, right arm and neck. It started an hour ago. She had nausea, dyspnea and lightheadedness at that time. No nausea or dyspnea now, but her pain is 4/10. She declined meds at this time. She was given aspirin en route. Related Data Home Medications ?Medication ?Instructions ?Recorded ?Confirmed ?Last Taken ?Type atorvastatin 80 mg tablet 80 mg PO DAILY 11/08/22 11/08/22 Unknown History budesonide-formoterol HFA 160 puff inhalation DAILY 11/08/22 Unknown History mcg-4.5 mcg/actuation aerosol inhaler (Symbicort) carvedilol 3.125 mg tablet 3.125 mg PO DAILY 11/08/22 11/08/22 Unknown History cetirizine 10 mg tablet 10 mg PO DAILY 11/08/22 11/08/22 Unknown History clorazepate dipotassium 7.5 mg 7.5 mg PO DAILY 11/08/22 11/08/22 Unknown History tablet famotidine 20 mg tablet 20 mg PO DAILY 11/08/22 11/08/22 Unknown History fluoxetine 40 mg capsule 40 mg PO DAILY 11/08/22 11/08/22 Unknown History fluticasone propionate 220 1 puff inhalation PRN PRN 11/08/22 11/08/22 Unknown History mcg/actuation HFA aerosol inhaler Shortness Of Breath Or Wheezing (Flovent HFA) hydrochlorothiazide 25 mg tablet 25 mg PO DAILY 11/08/22 11/08/22 Unknown History ipratropium 0.5 mg-albuterol 3 mg 3 ml inhalation Q6H PRN Shortness 11/08/22 11/08/22 Unknown History (2.5 mg base)/3 mL nebulization Of Breath Or Wheezing soln losartan 25 mg tablet 25 mg PO DAILY 11/08/22 11/08/22 Unknown History montelukast 10 mg tablet 10 mg PO DAILY 11/08/22 11/08/22 Unknown History omeprazole 40 mg capsule,delayed 40 mg PO DAILY 11/08/22 11/08/22 Unknown History release sumatriptan succinate 50 mg tablet mg PO 11/08/22 Unknown History Allergies Allergy/AdvReac Type Severity Reaction Status Date / Time lithium AdvReac Severe Unconscious Verified 04/26/25 01:20 Bumble Bee AdvReac Severe Anaphylactic Uncoded 04/26/25 01:20 Shock Review of Systems 2 Review of Systems: All systems reviewed & are unremarkable except as noted in HPI and below [facility] Past Medical History Medical History Hypertension Dyslipidemia CAD (coronary artery disease) COPD (chronic obstructive pulmonary disease) Social History Social History Smoking packs per day: 1 Smoking cigarettes per day: 20.0 Exam 2 Const: General: cooperative, healthy appearing, comfortable, no acute distress, well developed, alert, awake and Physically active O rientation/consciousness: oriented to person, oriented to place and oriented to time HENMT: Head: normal to inspection, normocephalic and atraumatic Ears: h earing grossly normal bilaterally and external ears normal Face/Nose/Sinus: N ormal external nose present Eyes: General: appearance normal, both eyes and all related structures P eriorbital: periorbital findings normal Sclera: sclerae normal Pupils: E qual, round and reactive pupils present Neck: Neck: normal visual inspection Chest: Chest palpation & inspection: normal inspection of the chest Resp: Effort & Inspection: normal respiratory effort, able to speak in complete sentences and no respiratory distress Auscultation: clear to auscultation bilaterally Cardio: Jugular venous distension: no JVD Rate: regular rate Rhythm: r egular rhythm GI: Inspection: normal to inspection GI Palp: Yes Soft to palpation A uscultation: normal bowel sounds Skin: General skin exam: normal color and no rashes or lesions noted Neuro: General: oriented to person, oriented to place and oriented to time Cranial nerves: Yes Equal, round and reactive pupils present Extrem: General: normal to inspection Course Course Emergency Course: Ordered labs, CTA, EKG EKG showed NSR with a rate of 70, normal axis, no ST elevation/depression CT Scan of the Chest with Contrast: Technique: Contiguous sections were acquired throughout the chest after intravenous administration of 100 cc of Omnipaque 350. Dose reduction technique was used on this scan by utilizing automated exposure control and iterative reconstruction technique. The dose-length product (DLP) was 644.97 mGy-cm. COMPARISON: 03/27/2025 Findings: There is no evidence of any significant mediastinal, hilar or axillary lymphadenopathy. There is no filling defect in the pulmonary arterial tree to suggest pulmonary embolus. There is no evidence of aortic dissection or aneurysm. There is no evidence of pleural or pericardial effusion. The lungs are clear. No pulmonary nodules or infiltrates are noted. Advanced emphysema present. Images through the upper abdomen reveal stable exophytic peripherally calcified splenic cystic mass. Stable severe T6 compression deformity. Stable mild T11 compression deformity.. Impression: No evidence of pulmonary embolus, aortic dissection, or aortic aneurysm. Advanced emphysema. Stable compression fracture deformities of T6 and T11, as detailed above. Repeat troponin WNL. Given this, and the normal CT it is unlikely to be cardiac, aortic dissection or PE and is likely from the chest wall Vital Signs Vital signs: Vital Signs Pulse Rate 73 04/26/25 01:07 Oxygen Delivery Room Air 04/26/25 01:07 Temperature 96.7 F L 04/26/25 01:15 Pulse Rate 71 04/26/25 06:01 Respiratory Rate 17 04/26/25 01:15 Blood Pressure 110/72 04/26/25 01:15 Pulse Oximetry 100 04/26/25 01:15 Oxygen Delivery Room Air 04/26/25 01:15 Medical Decision Making Vital Signs Vital Signs: Vital Signs Pulse Rate 73 04/26/25 01:07 Oxygen Delivery Room Air 04/26/25 01:07 Temperature 96.7 F L 04/26/25 01:15 Pulse Rate 71 04/26/25 06:01 Respiratory Rate 17 04/26/25 01:15 Blood Pressure 110/72 04/26/25 01:15 Pulse Oximetry 100 04/26/25 01:15 Oxygen Delivery Room Air 04/26/25 01:15 Lab Data 04/26/25 01:32 04/26/25 01:32 Labs: Lab Results 04/26/25 04/26/25 Range/Units 01:32 05:04 WBC 7.9 (4.8-10.8) K/mm3 RBC 4.67 (4.20-5.40) M/mm3 Hgb 14.1 H (11.7-13.8) g/dL Hct 43.6 H (35.0-42.0) % MCV 93.4 (78.0-102.0) fL MCH 30.2 (27.0-31.0) pg MCHC 32.3 (32-36) g/dL RDW 13.1 (11.6-14.4) % Plt Count 246 (150-420) K/mm3 MPV 8.5 L (9.2-11.8) fl Immature Gran % (Auto) 1.1 H (0.0-0.0) % Neut % (Auto) 51.0 (50.0-70.0) % Lymph % (Auto) 36.2 (18.0-42.0) % [place] % (Auto) 5.3 (2.0-11.0) % Eos % (Auto) 5.4 (1.0-6.0) % Baso % (Auto) 1.0 (0.0-1.0) % Lymph # (Auto) 2.87 (1.10-4.50) K/mm3 [place] # (Auto) 0.42 (0.10-0.90) K/mm3 Eos # (Auto) 0.43 (0.02-0.50) K/mm3 Baso # (Auto) 0.08 (0.00-0.10) K/mm3 Abs Immat Gran (auto) 0.09 H (0.00-0.00) K/mm3 Absolute Neuts (auto) 4.04 (1.70-7.20) K/mm3 Absolute Nucleated RBC 0.00 (0.00-0.00) K/mm3 Nucleated RBC % 0.0 (0-0.0) % PT 10.3 (9.50-12.1) Seconds INR 0.9 Sodium 137 (137-145) mmol/L Potassium 4.0 (3.4-5.0) mmol/L Chloride 105 (98-107) mmol/L Carbon Dioxide 28 (22-30) mmol/L Anion Gap 4 (4-12) mmol/L BUN 31 H (7-17) mg/dL Creatinine 1.29 H (0.7-1.0) mg/dL Estim Creat Clear Calc 39 ml/min Estimated GFR 41 L (59 - ) Glucose 128 H (65-110) mg/dL Calculated Osmolality 292 (285-295) mOsm/kg Calcium 8.9 (8.4-10.2) mg/dL Total Bilirubin 0.4 (0.2-1.3) mg/dL AST 27 (14-36) U/L ALT 19 (6-35) U/L Alkaline Phosphatase 105 (38-126) U/L Troponin I < 0.012 < 0.012 (0.000-0.034) ng/mL NT-Pro-B Natriuret Pep 56 (19.9-100) pg/mL Total Protein 7.2 (6.3-8.2) g/dL Albumin 4.1 (3.5-5.1) g/dL Discharge Plan Discharge Clinical Impression: Chest pain Patient Disposition: Home Condition: Stable Instructions: Chest Pain (ED) Patient Language: Kinyarwanda Prescriptions: No Action albuterol sulfate 90 mcg/actuation HFA aerosol inhaler 2 puff inhalation QID PRN (Reason: shortness of breath or wheezing) Qty: 8.5 0RF sucralfate [Carafate] 1 gram tablet 1 g PO BID 30 Days Qty: 60 0RF fluoxetine 40 mg capsule 40 mg PO DAILY atorvastatin 80 mg tablet 80 mg PO DAILY cetirizine 10 mg tablet 10 mg PO DAILY sumatriptan succinate 50 mg tablet PO omeprazole 40 mg capsule,delayed release(DR/EC) 40 mg PO DAILY carvedilol 3.125 mg tablet 3.125 mg PO DAILY famotidine 20 mg tablet 20 mg PO DAILY losartan 25 mg tablet 25 mg PO DAILY montelukast 10 mg tablet 10 mg PO DAILY fluticasone propionate [Flovent HFA] 220 mcg/actuation HFA aerosol inhaler 1 puff INHALATION PRN PRN (Reason: Shortness Of Breath Or Wheezing) hydrochlorothiazide 25 mg tablet 25 mg PO DAILY clorazepate dipotassium 7.5 mg tablet 7.5 mg PO DAILY budesonide-formoterol [Symbicort] 160-4.5 mcg/actuation HFA aerosol inhaler INHALATION DAILY ipratropium-albuterol 0.5 mg-3 mg(2.5 mg base)/3 mL solution for nebulization 3 ml inhalation Q6H PRN (Reason: Shortness Of Breath Or Wheezing) fluoxetine 40 mg capsule 40 mg PO DAILY Qty: 30 0RF clorazepate dipotassium 7.5 mg tablet 7.5 mg PO BID PRN (Reason: anxiety) Qty: 20 0RF azithromycin [Zithromax Z-Jose] 250 mg tablet See Rx Instructions .ROUTE .COMPLEX Qty: 6 0RF Rx Instructions: For 250 mg dose pack: take 500 mg today (day 1), then 250 mg for 4 days (days 2-5) Follow-up/Referrals: Daina,Jonathan Mcmahan NP [Primary Care Provider] -
[2025-04-26 01:45] LABS: Basophils Absolute Auto 0.08 K/mm3 (0.00-0.10); Eosinophils Absolute Auto 0.43 K/mm3 (0.02-0.50); Eosinophils Percent Auto 5.4 % (1.0-6.0); Hematocrit 43.6 % (35.0-42.0); Hemoglobin 14.1 g/dL (11.7-13.8); Immature Granulocyte Absolute 0.09 K/mm3 (0.00-0.00); Immature Granulocyte Percent A 1.1 % (0.0-0.0); Lymphocytes Absolute Auto 2.87 K/mm3 (1.10-4.50); Lymphocytes Percent Auto 36.2 % (18.0-42.0); Mean Corpuscular HGB Conc 32.3 g/dL (32-36); Mean Corpuscular Hemoglobin 30.2 pg (27.0-31.0); Mean Corpuscular Volume 93.4 fL (78.0-102.0); Mean Platelet Volume 8.5 fl (9.2-11.8); Monocytes Absolute Auto 0.42 K/mm3 (0.10-0.90); Monocytes Percent Auto 5.3 % (2.0-11.0); Neutrophils Absolute Auto 4.04 K/mm3 (1.70-7.20); Platelet Count Result 246 K/mm3 (150-420); Red Blood Count 4.67 M/mm3 (4.20-5.40); Red Cell Distribution Width 13.1 % (11.6-14.4); White Blood Count 7.9 K/mm3 (4.8-10.8)
[2025-04-26 01:48] LABS: Alanine Aminotransferase 19 U/L (6-35); Albumin Level 4.1 g/dL (3.5-5.1); Alkaline Phosphatase 105 U/L (38-126); Anion Gap 4 mmol/L (4-12); Aspartate Amino Transferase 27 U/L (14-36); Bilirubin,Total 0.4 mg/dL (0.2-1.3); Blood Urea Nitrogen 31 mg/dL (7-17); Calcium 8.9 mg/dL (8.4-10.2); Carbon Dioxide 28 mmol/L (22-30); Chloride 105 mmol/L (98-107); Estimated CRCL calculation 39 ml/min; Estimated Glomerular Filt Rate 41; Glucose 128 mg/dL (65-110); Osmolality Calculated 292 mOsm/kg (285-295); Sodium 137 mmol/L (137-145); Total Protein 7.2 g/dL (6.3-8.2)
[2025-04-26 01:51] LABS: INR 0.9; Prothrombin Time 10.3 Seconds (9.50-12.1)
[2025-04-26 02:00] LABS: NT Pro B Type Natriuretic Pept 56 pg/mL (19.9-100); Troponin I < 0.012 ng/mL (0.000-0.034)
[2025-04-26 05:31] LABS: Troponin I < 0.012 ng/mL (0.000-0.034)
--- NOTE | 2025-04-26 06:56 | PC.NURSE ---
patient stated that she was going to call for rides home, however states that she does not drive and has no way home.
== END 2025-04-26 07:30 | disposition home or self-care (01) ==
PROVIDERS: Emergency Provider Family Medicine; PCP Nurse Practitioner Family
DX: R07.9 Chest pain, unspecified (principal); J44.9 Chronic obstructive pulmonary disease, unspecified; I25.10 Atherosclerotic heart disease of native coronary artery without angina pectoris; I10 Essential (primary) hypertension; F17.210 Nicotine dependence, cigarettes, uncomplicated
CPT/HCPCS: 36415; 71275; 80053; 83880; 84484; 85025; 85610; 93005; 99284; Q9967

== ENCOUNTER 2025-05-12 14:55 | Outpatient (RCR) | payer OTHER, SELFPAY ==
--- NOTE | 2025-05-12 15:46 | OPREHPOC ---
Outpatient Therapy Plan of Care This is a Multidisciplinary Plan of Care that may contain components documented by all disciplines (PT, OT, and ST.)
--- NOTE | 2025-05-12 15:46 | PTOPEVAL1 ---
Assessment and note entered by JT File, PT Evaluation Information Assessment Status Evaluation Diagnosis WC evaluation ICD-10 Condition Codes (PT) Difficulty Walking R26.2,Abnormalities of gait and mobility R26.9,Weakness R53.1 Onset 04/13/25 Subjective Information mrs. ramirez presents to skilled PT services for evaluation for power scooter (POV). she is complicated by a long history of poor cardiovascular and respiratory health. she reports she is unable to walk even short distances from parking lot to door. she reports she had a POV scooter but it no longer works and is 10 years old . Reported Pain Level Pain Score 6: Self Report Assessment PT Clinical Summary see additional paper documentations. patient would benefit from the receipt of a POV scooter to improve her independence and safety with ADL and activities in the home and community. no continued skilled PT needs at this time. Plan of Care Treatment Frequency and DC Duration These treatments will address the objective and functional deficits as defined above. The patient will be advanced safely and appropriately in order for the patient to progress towards his/her prior level of function. Additional exercises will be introduced and as well as a comprehensive home exercise program upon discharge, if needed, ?to ensure carryover of functional gains achieved in the clinic. This treatment plan has been reviewed and agreement upon by the patient.
--- NOTE | 2025-07-19 16:35 | PCPTNOTE ---
pt attends 1 visit of skilled PT for power scooter evaluation. pt is being discharged from therapy.
== END 2025-05-12 20:00 | disposition home or self-care (01) ==
LOC: CHSPT 14:55
PROVIDERS: Visit Provider Nurse Practitioner Family
DX: Z74.09 Other reduced mobility (principal)
CPT/HCPCS: 97161

== ENCOUNTER 2025-05-15 11:00 | Emergency (ER) | payer OTHER, SELFPAY ==
[2025-05-15 11:00] VITALS: BP 127/63; PULSE 82; RESP 16; TEMP 36.3; O2SAT 97
[2025-05-15 11:24] LABS: Hematocrit 39.2 % (35.0-42.0); Hemoglobin 12.8 g/dL (11.7-13.8); Immature Granulocyte Percent A 0.3 % (0.0-0.0); Lymphocytes Absolute Auto 1.47 K/mm3 (1.10-4.50); Mean Corpuscular HGB Conc 32.7 g/dL (32-36); Mean Corpuscular Hemoglobin 30.0 pg (27.0-31.0); Mean Corpuscular Volume 92.0 fL (78.0-102.0); Nucleated Red Blood Cells Absolute Auto 0.00 K/mm3 (0.00-0.00); Nucleated Red Blood Cells Perc 0.0 % (0-0.0); Platelet Count Result 207 K/mm3 (150-420); Red Blood Count 4.26 M/mm3 (4.20-5.40); White Blood Count 6.1 K/mm3 (4.8-10.8)
[2025-05-15] MEDS: SODIUM CHLORIDE 0.9% IV 1,000 ML 999 ML IV CONT (11:26)
[2025-05-15] MEDS: KETOROLAC 30 MG/ML VIAL (*BKC) IV PUSH (11:27)
[2025-05-15 11:38] LABS: Alanine Aminotransferase 22 U/L (6-35); Albumin Level 4.1 g/dL (3.5-5.1); Alkaline Phosphatase 101 U/L (38-126); Anion Gap 5 mmol/L (4-12); Aspartate Amino Transferase 30 U/L (14-36); Bilirubin,Total 0.4 mg/dL (0.2-1.3); Blood Urea Nitrogen 33 mg/dL (7-17); Calcium 8.8 mg/dL (8.4-10.2); Carbon Dioxide 28 mmol/L (22-30); Chloride 104 mmol/L (98-107); Creatine Kinase 155 U/L (30-135); Estimated CRCL calculation 40 ml/min; Estimated Glomerular Filt Rate 41; Glucose 126 mg/dL (65-110); Magnesium 2.0 mg/dL (1.6-2.3); Osmolality Calculated 293 mOsm/kg (285-295); Potassium 3.9 mmol/L (3.4-5.0); Sodium 137 mmol/L (137-145); Total Protein 7.2 g/dL (6.3-8.2)
--- NOTE | 2025-05-15 11:45 | ED.LOWEXIN ---
HPI - Extremity Injury (Lower) General Chief Complaint: Extremity Injury, Lower Stated Complaint: bilateral leg pain Time Seen by Provider: 05/15/25 11:10 Source: patient Mode of arrival: ambulatory Limitations: no limitations History of Present Illness HPI Narrative: this is a 70-year-old female with history of hypertension presents with bilateral lower extremity cramping and aching no known injury no calf pain no swelling in her legs has good circulation warm and red and pulses bilaterally are intact, no shortness of breath no chest pain no abdominal pain no fever chills. Onset (ago): day(s) Severity: mild Related Data Home Medications ?Medication ?Instructions ?Recorded ?Confirmed ?Last Taken ?Type atorvastatin 80 mg tablet 80 mg PO DAILY 11/08/22 11/08/22 Unknown History budesonide-formoterol HFA 160 puff inhalation DAILY 11/08/22 Unknown History mcg-4.5 mcg/actuation aerosol inhaler (Symbicort) carvedilol 3.125 mg tablet 3.125 mg PO DAILY 11/08/22 11/08/22 Unknown History cetirizine 10 mg tablet 10 mg PO DAILY 11/08/22 11/08/22 Unknown History clorazepate dipotassium 7.5 mg 7.5 mg PO DAILY 11/08/22 11/08/22 Unknown History tablet famotidine 20 mg tablet 20 mg PO DAILY 11/08/22 11/08/22 Unknown History fluoxetine 40 mg capsule 40 mg PO DAILY 11/08/22 11/08/22 Unknown History fluticasone propionate 220 1 puff inhalation PRN PRN 11/08/22 11/08/22 Unknown History mcg/actuation HFA aerosol inhaler Shortness Of Breath Or Wheezing (Flovent HFA) hydrochlorothiazide 25 mg tablet 25 mg PO DAILY 11/08/22 11/08/22 Unknown History ipratropium 0.5 mg-albuterol 3 mg 3 ml inhalation Q6H PRN Shortness 11/08/22 11/08/22 Unknown History (2.5 mg base)/3 mL nebulization Of Breath Or Wheezing soln losartan 25 mg tablet 25 mg PO DAILY 11/08/22 11/08/22 Unknown History montelukast 10 mg tablet 10 mg PO DAILY 11/08/22 11/08/22 Unknown History omeprazole 40 mg capsule,delayed 40 mg PO DAILY 11/08/22 11/08/22 Unknown History release sumatriptan succinate 50 mg tablet mg PO 11/08/22 Unknown History Allergies Allergy/AdvReac Type Severity Reaction Status Date / Time lithium AdvReac Severe Unconscious Verified 05/15/25 11:08 Bumercyle Bee AdvReac Severe Anaphylactic Uncoded 05/15/25 11:08 Shock Review of Systems Review of Systems: All systems reviewed & are unremarkable except as noted in HPI and below PMFSH Past Medical History Medical History Hypertension Dyslipidemia CAD (coronary artery disease) COPD (chronic obstructive pulmonary disease) Social History Social History Smoking packs per day: 1 Smoking cigarettes per day: 20.0 Exam Const: General: healthy appearing and no acute distress Nutritional Appearance: well nourished Orientation/consciousness: patient oriented x3 Limitations: no limitations Eyes: Conjunctivae: conjunctivae normal Pupils: Equal, round and reactive pupils present Neck: Neck: normal visual inspection and no lymphadenopathy Chest: Chest palpation & inspection: normal inspection of the chest Resp: Effort & Inspection: normal respiratory effort Auscultation: clear to auscultation bilaterally Cardio: Rate: regular rate Rhythm: regular rhythm GI: GI Palp: Yes Soft to palpation Auscultation: normal bowel sounds Back/Spine/Pelvis: Back: no CVA tenderness Skin: General skin exam: normal color Rashes: no rashes Wounds: no wounds Neuro: General: patient oriented x3, moves all extremities, no meningeal signs and no focal motor deficits Extrem: General: normal to inspection and no clubbing, cyanosis or edema Course Course Emergency Course: Patient received 30mg IV Toradol and normal saline fluids labs obtained and reviewed with patient advised patient to follow with primary care physician after reassessment patient's lower extremity cramping has improved. Vital Signs Vital signs: Vital Signs Temperature 36.3 C L 05/15/25 11:00 Pulse Rate 82 05/15/25 11:00 Respiratory Rate 16 05/15/25 11:00 Blood Pressure 127/63 05/15/25 11:00 Pulse Oximetry 97 05/15/25 11:00 Oxygen Delivery Room Air 05/15/25 11:00 Temperature 36.3 C L 05/15/25 11:00 Pulse Rate 82 05/15/25 11:00 Respiratory Rate 16 05/15/25 11:00 Blood Pressure 127/63 05/15/25 11:00 Pulse Oximetry 97 05/15/25 11:00 Oxygen Delivery Room Air 05/15/25 11:00 MDM - Extremity Injury (Lower) Lab Data 05/15/25 11:18 05/15/25 11:18 Labs: Lab Results 05/15/25 Range/Units 11:18 WBC 6.1 (4.8-10.8) K/mm3 RBC 4.26 (4.20-5.40) M/mm3 Hgb 12.8 (11.7-13.8) g/dL Hct 39.2 (35.0-42.0) % MCV 92.0 (78.0-102.0) fL MCH 30.0 (27.0-31.0) pg MCHC 32.7 (32-36) g/dL RDW 13.4 (11.6-14.4) % Plt Count 207 (150-420) K/mm3 MPV 8.2 L (9.2-11.8) fl Immature Gran % (Auto) 0.3 H (0.0-0.0) % Neut % (Auto) 65.2 (50.0-70.0) % Lymph % (Auto) 24.1 (18.0-42.0) % [place] % (Auto) 5.7 (2.0-11.0) % Eos % (Auto) 3.9 (1.0-6.0) % Baso % (Auto) 0.8 (0.0-1.0) % Lymph # (Auto) 1.47 (1.10-4.50) K/mm3 [place] # (Auto) 0.35 (0.10-0.90) K/mm3 Eos # (Auto) 0.24 (0.02-0.50) K/mm3 Baso # (Auto) 0.05 (0.00-0.10) K/mm3 Abs Immat Gran (auto) 0.02 H (0.00-0.00) K/mm3 Absolute Neuts (auto) 3.98 (1.70-7.20) K/mm3 Absolute Nucleated RBC 0.00 (0.00-0.00) K/mm3 Nucleated RBC % 0.0 (0-0.0) % Sodium 137 (137-145) mmol/L Potassium 3.9 (3.4-5.0) mmol/L Chloride 104 (98-107) mmol/L Carbon Dioxide 28 (22-30) mmol/L Anion Gap 5 (4-12) mmol/L BUN 33 H (7-17) mg/dL Creatinine 1.29 H (0.7-1.0) mg/dL Estim Creat Clear Calc 40 ml/min Estimated GFR 41 L (59 - ) Glucose 126 H (65-110) mg/dL Calculated Osmolality 293 (285-295) mOsm/kg Lactic Acid 1.2 (0.4-2.0) mmol/L Calcium 8.8 (8.4-10.2) mg/dL Magnesium 2.0 (1.6-2.3) mg/dL Total Bilirubin 0.4 (0.2-1.3) mg/dL AST 30 (14-36) U/L ALT 22 (6-35) U/L Alkaline Phosphatase 101 (38-126) U/L Total Creatine Kinase 155 H (30-135) U/L Total Protein 7.2 (6.3-8.2) g/dL Albumin 4.1 (3.5-5.1) g/dL Critical Care Time Critical Care Time Critical Care Time: No Discharge Plan Discharge Clinical Impression: Bilateral leg cramps Patient Disposition: Home Condition: Stable Instructions: Antibiotic Form, Leg Cramps (ED) Additional Instructions: advised to take magnesium glycinate 400mg [id number] an hour before bedtime and to follow with primary care physician Patient Language: [place] Prescriptions: No Action albuterol sulfate 90 mcg/actuation HFA aerosol inhaler 2 puff inhalation QID PRN (Reason: shortness of breath or wheezing) Qty: 8.5 0RF sucralfate [Carafate] 1 gram tablet 1 g PO BID 30 Days Qty: 60 0RF fluoxetine 40 mg capsule 40 mg PO DAILY atorvastatin 80 mg tablet 80 mg PO DAILY cetirizine 10 mg tablet 10 mg PO DAILY sumatriptan succinate 50 mg tablet PO omeprazole 40 mg capsule,delayed release(DR/EC) 40 mg PO DAILY carvedilol 3.125 mg tablet 3.125 mg PO DAILY famotidine 20 mg tablet 20 mg PO DAILY losartan 25 mg tablet 25 mg PO DAILY montelukast 10 mg tablet 10 mg PO DAILY fluticasone propionate [Flovent HFA] 220 mcg/actuation HFA aerosol inhaler 1 puff INHALATION PRN PRN (Reason: Shortness Of Breath Or Wheezing) hydrochlorothiazide 25 mg tablet 25 mg PO DAILY clorazepate dipotassium 7.5 mg tablet 7.5 mg PO DAILY budesonide-formoterol [Symbicort] 160-4.5 mcg/actuation HFA aerosol inhaler INHALATION DAILY ipratropium-albuterol 0.5 mg-3 mg(2.5 mg base)/3 mL solution for nebulization 3 ml inhalation Q6H PRN (Reason: Shortness Of Breath Or Wheezing) fluoxetine 40 mg capsule 40 mg PO DAILY Qty: 30 0RF clorazepate dipotassium 7.5 mg tablet 7.5 mg PO BID PRN (Reason: anxiety) Qty: 20 0RF azithromycin [Zithromax Z-Jose] 250 mg tablet See Rx Instructions .ROUTE .COMPLEX Qty: 6 0RF Rx Instructions: For 250 mg dose pack: take 500 mg today (day 1), then 250 mg for 4 days (days 2-5) Follow-up/Referrals: Daina,Jonathan Mcmahan NP [Primary Care Provider] - Time of Disposition: 11:48
[2025-05-15 11:56] VITALS: BP 135/65; PULSE 78; RESP 16; TEMP 36.8; O2SAT 99
== END 2025-05-15 11:56 | disposition home or self-care (01) ==
PROVIDERS: Emergency Provider Emergency Medicine; PCP Nurse Practitioner Family
DX: R25.2 Cramp and spasm (principal); I10 Essential (primary) hypertension; I25.10 Atherosclerotic heart disease of native coronary artery without angina pectoris; J44.9 Chronic obstructive pulmonary disease, unspecified; F17.210 Nicotine dependence, cigarettes, uncomplicated
CPT/HCPCS: 36415; 80053; 82550; 83605; 83735; 85025; 96361; 96374; 99284; J1885; J7030

== ENCOUNTER 2025-05-19 02:01 | Emergency (ER) | payer OTHER, SELFPAY ==
--- NOTE | ~2025-05-19 | CT_ITS ---
Noncontrast CT scan of the cervical spine Technique: Multiple contiguous axial [address] images of the cervical spine were obtained and rec onstructed in 2D sagittal and coronal planes on the acquisition scanner. Dose reduction technique was used on this scan by utilizing automated exposure control, adjustment of the mA and/or kV according to patient size. The dose-length product (DLP) was 473.72 mGy-cm. Clinical History: Pain Findings: No fractures or dislocations. There is moderate degenerative change of the articulation of the odontoid process with the anterior arch of C1. At C2-C3, there is no disc bulge or herniation. There is minimal facet arthropathy. No spinal canal s tenosis, cord compression, or neural foraminal narrowing identified. At C3-C4, there is bilateral facet arthropathy with left neural foraminal narrowing and possible mini mal right neural foraminal narrowing. There is minimal central disc bulge. No spinal canal stenosis o r cord compression evident. At C4-C5, there is right facet arthropathy particular, with right neural foraminal narrowing. Left ne ural foramen preserved. No canal stenosis or cord compression evident. At C5-C6, there is no definite spinal canal stenosis, cord compression, or neural foraminal narrowing . At C6-C7, there is minimal disc bulge. No definite canal stenosis, cord compression, or neural forami nal narrowing. Emphysema noted at the lung apices. No prevertebral soft tissue swelling. Impression: No fracture or subluxation of the cervical spine. Degenerative change, as detailed above, overall mild in degree given patient age. Reviewed, dictated and finalized at [facility]. Impression: No fracture or subluxation of the cervical spine. Degenerative change, as detailed above, overall mild in degree given patient ag e.
--- NOTE | ~2025-05-19 | CT_ITS ---
Noncontrast CT scan of the lumbar spine CLINICAL HISTORY: Back pain TECHNIQUE: Axial noncontrast imaging of the lumbar spine was performed. Sagittal and coronal reformat cecilio images were constructed. Dose reduction technique was used on this scan by utilizing automated ex posure control and iterative reconstruction technique. The dose-length product (DLP) was 1497.25 mGy- cm. FINDINGS: No acute fracture or subluxation seen in the lumbar spine. There is mild compression deform ity versus Schmorl's noted at T11, unchanged since prior exam from 03/27/2025. Lumbar vertebral bodies maintain normal height and alignment. At L1-L2, there is no disc bulge or herniation. There is moderate facet arthropathy. No central canal stenosis or definite neural foraminal narrowing. At L2-L3, there is minimal disc bulge with moderate facet arthropathy. No central canal stenosis or d efinite neural foraminal narrowing. L3-L4, there is mild disc bulge with severe facet arthropathy. There is mild central canal stenosis. No definite neural foraminal narrowing. At L4-L5, there is no disc bulge or herniation. There is severe facet arthropathy with minimal centra l canal stenosis. There is mild to moderate bilateral neural foraminal narrowing. At L5-S1, there is severe facet arthropathy with minimal disc bulge. Probable mild central canal sten osis. There is severe bilateral neural foraminal narrowing. Paravertebral soft tissues are unremarkable. Impression: No acute fracture or subluxation. Degenerative spondylosis at the lower lumbar spine, as above. Reviewed, dictated and finalized at [facility]. Impression: No acute fracture or subluxation. Degenerative spondylosis at the lower lumbar spine, as above.
[2025-05-19 02:01] VITALS: BP 168/87; PULSE 70; RESP 20; TEMP 36.7; O2SAT 99
--- NOTE | 2025-05-19 02:04 | ED_ITS ---
HPI - Back Pain/Injury General Chief Complaint: Back Pain/Injury Stated Complaint: Injury to Back Time Seen by Provider: 05/19/25 02:03 Source: patient Mode of arrival: ambulatory Limitations: no limitations History of Present Illness HPI Narrative: patient is a 70-year-old female with acute onset of bilateral upper extremity numbness and tingling as well as bilateral lower extremity numbness and tingling after trying to get out of bed to go to the bathroom this evening and heard a big pop sound in the lower back. No major injuries occurred to cause this problem. She simply pivoted and a pop sound occurred mid to lower back and these symptoms occurred thereafter. Patient came via EMS. no saddle anesthesia and no urinary or bowel acute changes. MD elicited complaint: back pain Pertinent past history: other ( No prior back issues) Onset (ago): hour(s) ( 1) Timing: constant Severity: mild Pain scale (0-10): 2 Similar Symptoms Previously: No Quality: burning, sharp and tingling Location: lumbar spine ( cervical spine and lumbar spine) Radiation: left upper leg, right upper leg, left leg below the knee, right leg below the knee and neck Exacerbating factors: movement Relieving factors: none Context: turning/twisting Associated symptoms: other ( no loss of urine or stool or saddle anesthesia) Treatments prior to arrival: other ( none) Work related injury: No Related Data Home Medications ?Medication ?Instructions ?Recorded ?Confirmed ?Last Taken ?Type atorvastatin 80 mg tablet 80 mg PO DAILY 11/08/22 11/08/22 Unknown History budesonide-formoterol HFA 160 puff inhalation DAILY 11/08/22 Unknown History mcg-4.5 mcg/actuation aerosol inhaler (Symbicort) carvedilol 3.125 mg tablet 3.125 mg PO DAILY 11/08/22 11/08/22 Unknown History cetirizine 10 mg tablet 10 mg PO DAILY 11/08/22 11/08/22 Unknown History clorazepate dipotassium 7.5 mg 7.5 mg PO DAILY 11/08/22 11/08/22 Unknown History tablet famotidine 20 mg tablet 20 mg PO DAILY 11/08/22 11/08/22 Unknown History fluoxetine 40 mg capsule 40 mg PO DAILY 11/08/22 11/08/22 Unknown History fluticasone propionate 220 1 puff inhalation PRN PRN 11/08/22 11/08/22 Unknown History mcg/actuation HFA aerosol inhaler Shortness Of Breath Or Wheezing (Flovent HFA) hydrochlorothiazide 25 mg tablet 25 mg PO DAILY 11/08/22 11/08/22 Unknown History ipratropium 0.5 mg-albuterol 3 mg 3 ml inhalation Q6H PRN Shortness 11/08/22 11/08/22 Unknown History (2.5 mg base)/3 mL nebulization Of Breath Or Wheezing soln losartan 25 mg tablet 25 mg PO DAILY 11/08/22 11/08/22 Unknown History montelukast 10 mg tablet 10 mg PO DAILY 11/08/22 11/08/22 Unknown History omeprazole 40 mg capsule,delayed 40 mg PO DAILY 11/08/22 11/08/22 Unknown Histor y release sumatriptan succinate 50 mg tablet mg PO 11/08/22 Unknown History Allergies Allergy/AdvReac Type Severity Reaction Status Date / Time lithium AdvReac Severe Unconscious Verified 05/19/25 02:54 Bumble Bee AdvReac Severe Anaphylactic Uncoded 05/19/25 02:54 Shock Review of Systems Review of Systems: All systems reviewed & are unremarkable except as noted in HPI and below Constitutional: Constitutional: Reports no additional constitutional complaints Eyes: Eyes: Reports no additional eye complaints ENT: Reports system reviewed and no additional complaints, except as documented Cardiovascular: Cardiovascular: Reports no additional cardiovascular complaints Respiratory: Respiratory: Reports no additional respiratory complaints Gastrointestinal: Gastrointestinal: Reports no additional gastrointestinal complaints Genitourinary: Genitourinary: Reports no additional female genitourinary complaints Musculoskeletal: Musculoskeletal: Reports no additional musculoskeletal complaints Integumentary/Breasts: Skin/Breast: Reports system reviewed and no additional complaints, except as docu Neurologic: Reports system reviewed and no additional complaints, except as documented Psychiatric: Psychiatric: Reports no additional psychiatric complaints Endocrine: Endocrine: Reports no additional endocrine complaints Hematologic/Lymphatic: Hematologic/Lymphatic: Reports no additional hematologic/lymphatic complaints Allergic/Immunologic: Allergic/Immunologic: Reports no additional allergic/immunologic complaints [facility] Past Medical History Medical History Hypertension Dyslipidemia CAD (coronary artery disease) COPD (chronic obstructive pulmonary disease) Social History Social History Smoking packs per day: 1 Smoking cigarettes per day: 20.0 Exam Const: General: healthy appearing Nutritional Appearance: well nourished Orientation/consciousness: patient oriented x3 Limitations: no limitations HENMT: Head: normal to inspection Ears: external ears normal Face/Nose/Sinus: Normal external nose present Eyes: Conjunctivae: conjunctivae normal Pupils: Equal, round and reactive pupils present EOM: EOMs intact bilaterally Neck: Neck: normal visual inspection Chest: Chest palpation & inspection: normal inspection of the chest Resp: Effort & Inspection: normal respiratory effort and not labored Auscultation: clear to auscultation bilaterally and no crackles Cardio: Rate: regular rate Rhythm: regular rhythm Heart sounds: no murmurs GI: Inspection: non-distended GI Palp: Yes Soft to palpation and No Tenderness to palpation present (GI) Auscultation: normal bowel sounds : General: Yes bladder normal to palpation Back/Spine/Pelvis: Back: no CVA tenderness Skin: General skin exam: normal color Rashes: no rashes Wounds: no wounds Neuro: General: patient oriented x3, moves all extremities, no meningeal signs, no focal motor deficits and CN's II-XI intact bilaterally Cranial nerves: Yes Nystagmus not present Speech: normal speech Gait exam (Neuro): Normal gait present Other: fast exam negative, NIH score 2, GCS is 15 straight leg test equivocal bilaterally since she has continuous numbness and tingling but it does get worse when elevating the lower extremities on straight leg test 2+ bilateral lower extremity /knee deep tendon reflexes Extrem: General: normal to inspection Psych: Mental Status: mental status grossly normal Affect: normal affect Attitude: cooperative Course Vital Signs Vital signs: Vital Signs Temperature 36.7 C 05/19/25 02:01 Pulse Rate 70 05/19/25 02:01 Respiratory Rate 20 05/19/25 02:01 Blood Pressure 168/87 H 05/19/25 02:01 Pulse Oximetry 99 05/19/25 02:01 Oxygen Delivery Room Air 05/19/25 02:01 Temperature 36.7 C 05/19/25 02:01 Pulse Rate 70 05/19/25 02:01 Respiratory Rate 20 05/19/25 02:01 Blood Pressure 168/87 H 05/19/25 02:01 Pulse Oximetry 99 05/19/25 02:01 Oxygen Delivery Room Air 05/19/25 02:01 MDM - Back Pain/Injury MDM Narrative Medical decision making narrative: patient is a 70-year-old female with neck pain and upper extremity numbness bilateral as well as mid lower back pain with bilateral lower extremity numbness; she does not have complete numbness bilaterally but she does have partial numbness with tingling; specifically right hip region is radiating pain at this time now. We will get CT scans and give steroid and muscle relaxer IM. after a a few hours of monitoring the patient and awaiting CT scan results, patient was given her steroid and muscle relaxer injections but no changes have occurred. She is still having numbness and tingling down both arms and both legs at this time. We will discuss case with personal protection specialist on-call in [place] per patient request for [place]. I discussed case with neuro surgery on-call for spinal and they did decline the case and said the patient should go ER to ER for an acute MRI of the spine. Patient will go to [facility] ER at this time. Imaging Data Attestation: I personally reviewed and interpreted this imaging study as follows: Radiologist's impression: Preliminary CT L-spine is negative for acute process; chronic change seen preliminary CT C-spine is negative for acute process Discharge Plan Discharge Clinical Impression: Lumbar radiculopathy, Cervical radiculopathy Patient Disposition: Acute Care Hospital Condition: Stable Patient Language: Danish Prescriptions: No Action albuterol sulfate 90 mcg/actuation HFA aerosol inhaler 2 puff inhalation QID PRN (Reason: shortness of breath or wheezing) Qty: 8.5 0RF sucralfate [Carafate] 1 gram tablet 1 g PO BID 30 Days Qty: 60 0RF fluoxetine 40 mg capsule 40 mg PO DAILY atorvastatin 80 mg tablet 80 mg PO DAILY cetirizine 10 mg tablet 10 mg PO DAILY sumatriptan succinate 50 mg tablet PO omeprazole 40 mg capsule,delayed release(DR/EC) 40 mg PO DAILY carvedilol 3.125 mg tablet 3.125 mg PO DAILY famotidine 20 mg tablet 20 mg PO DAILY losartan 25 mg tablet 25 mg PO DAILY montelukast 10 mg tablet 10 mg PO DAILY fluticasone propionate [Flovent HFA] 220 mcg/actuation HFA aerosol inhaler 1 puff INHALATION PRN PRN (Reason: Shortness Of Breath Or Wheezing) hydrochlorothiazide 25 mg tablet 25 mg PO DAILY clorazepate dipotassium 7.5 mg tablet 7.5 mg PO DAILY budesonide-formoterol [Symbicort] 160-4.5 mcg/actuation HFA aerosol inhaler INHALATION DAILY ipratropium-albuterol 0.5 mg-3 mg(2.5 mg base)/3 mL solution for nebulization 3 ml inhalation Q6H PRN (Reason: Shortness Of Breath Or Wheezing) fluoxetine 40 mg capsule 40 mg PO DAILY Qty: 30 0RF clorazepate dipotassium 7.5 mg tablet 7.5 mg PO BID PRN (Reason: anxiety) Qty: 20 0RF azithromycin [Zithromax Z-Jose] 250 mg tablet See Rx Instructions .ROUTE .COMPLEX Qty: 6 0RF Rx Instructions: For 250 mg dose pack: take 500 mg today (day 1), then 250 mg for 4 days (days 2-5) Follow-up/Referrals: Daina,Jonathan Mcmahan NP [Primary Care Provider] - Time of Disposition: 04:29
[2025-05-19] MEDS: dexAMETHasone SOD PHOS INJ 10 MG/ML 1 ML VIAL IM (03:03)
[2025-05-19] MEDS: ORPHENADRINE CITRATE 30 MG/ML 2 ML VIAL 60 MG IM (03:03)
[2025-05-19 05:10] VITALS: BP 131/65; PULSE 77; RESP 16; TEMP 36.7; O2SAT 96
== END 2025-05-19 07:17 | disposition short-term general hospital (02) ==
PROVIDERS: Emergency Provider Emergency Medicine; PCP Nurse Practitioner Family
DX: M54.16 Radiculopathy, lumbar region (principal); I10 Essential (primary) hypertension; I25.10 Atherosclerotic heart disease of native coronary artery without angina pectoris; J44.9 Chronic obstructive pulmonary disease, unspecified; F17.210 Nicotine dependence, cigarettes, uncomplicated
CPT/HCPCS: 72125; 72131; 96372; 99285; J1100; J2360

== ENCOUNTER 2025-06-24 10:48 | Outpatient (CLI) | payer OTHER, SELFPAY ==
[2025-06-24 11:06] LABS: Hematocrit 40.6 % (35.0-42.0); Hemoglobin 12.8 g/dL (11.7-13.8); Immature Granulocyte Percent A 0.8 % (0.0-0.0); Lymphocytes Absolute Auto 1.74 K/mm3 (1.10-4.50); Mean Corpuscular HGB Conc 31.5 g/dL (32-36); Mean Corpuscular Hemoglobin 29.7 pg (27.0-31.0); Mean Corpuscular Volume 94.2 fL (78.0-102.0); Nucleated Red Blood Cells Absolute Auto 0.00 K/mm3 (0.00-0.00); Nucleated Red Blood Cells Perc 0.0 % (0-0.0); Platelet Count Result 228 K/mm3 (150-420); Red Blood Count 4.31 M/mm3 (4.20-5.40); White Blood Count 6.4 K/mm3 (4.8-10.8)
--- OUTSIDE RECORDS SUMMARY | 2025-06-24 11:34 | XMS_ITS | Encounter Summary ---
Author Organization [facility] Address [address] [place] [address] Care Team Providers Care Registered Dietitian Name Role Phone Morenita Castillo ANP-BC Unavailable [phone] Eneida Reza RABBET OPERATOR Primary Care Provider [phone] Encounter Details Date Type Department Care Team (Late st Contact Info) Description 04/08/2023 Hospital Follow-up Call [facility] [address] [place] [address] Monet Urban, RN Social History Tobacco Use Types Packs/Day Years Used Date Smoking Tobacco: Every Day Cigarettes 1 50 Smokeless Tobacco: Never Alcohol Use Standard Drinks/Week Comments No 0 (1 standard drink = 0.6 oz pur e alcohol) Humiliation, Afraid, Rape, and Kick questionnair e Answer Date Recorded Within the last year, have y ou been afraid of your partner or ex-partner? Patient declined 04/05/2023 Within the last year, have y ou been humiliated or emotionally abused in other ways by your partner or ex-partner? Patient declined 04/05/2023 Within the last year, have y ou been kicked, hit, slapped, or otherwise physically hurt by your partner or ex-partner? Patient declined 04/05/2023 Within the last year, have y ou been raped or forced to have any kind of sexual activity by your partner or ex-partner? Patient declined 04/05/2023 Social Connection and Isolation Panel [NHANES] A nswer Date Recorded In a typical week, how many times do you talk on the phone with family, friends, or neighbors? Patient declined 04/05/2023 How often do you get togethe r with friends or relatives? Patient declined 04/05/2023 How often do you attend mormonism or sikh serv ices? Patient declined 04/05/2023 Do you belong to any clubs o r organizations such as mormonism groups, unions, fraternal or athletic groups, or school groups? Patient declined 04/05/2023 How often do you attend meet ings of the clubs or organizations you belong to? Patient declined 04/05/2023 Are you , , di vorced, , never , or living with a partner? Patient declined 04/05/2023 AUDIT-C Answer Date Recorded Q1: How often do you have a drink containing alc ohol? Patient declined 04/05/2023 Q2: How many drinks containi ng alcohol do you have on a typical day when you are drinking? Patient declined 04/05/2023 Q3: How often do you have si x or more drinks on one occasion? Patient declined 04/05/2023 Overall Financial Resource Strain (CARDIA) Answe r Date Recorded How hard is it for you to pa y for the very basics like food, housing, medical care, and heating? Patient declined 04/05/2023 [facility] - Occupational Stress Questionnaire Answer Date Recorded Do you feel stress - tense, restless, nervous, or anxious, or unable to sleep at night because your mind is troubled all the time - these days? Patient declined 04/05/2023 Exercise Vital Sign Answer Date Recorde d On average, how many days pe r week do you engage in moderate to strenuous exercise (like a brisk walk)? Patient declined Minutes of Exercise per Session Not on file 04/05/2023 Hunger Vital Sign Answer Date Recorded Within the past 12 months, y ou worried that your food would run out before you got the money to buy more. Patient declined Within the past 12 months, t he food you bought just didn't last and you didn't have money to get more. Patient declined 12/2022 PRAPARE - Transportation Answer Date Re corded In the past 12 months, has l ack of transportation kept you from medical appointments or from getting medications? Patient declined 04/05/2023 In the past 12 months, has l ack of transportation kept you from meetings, work, or from getting things needed for daily living? Patient declined 04/05/2023 Housing Stability Vital Sign Answer Dany e Recorded In the last 12 months, was t here a time when you were not able to pay the mortgage or rent on time? Patient refused 04/05/20 23 In the last 12 months, how many places have you lived? 1 04/05/2023 In the last 12 months, was t here a time when you did not have a steady place to sleep or slept in a fci (including now)? 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 Unable to assess 04/06/2023 10:48 AM CDT documented as of this encounter Functional Status * Are you deaf or do you have serious difficulty hearing Answer Date of Assessment Author Status No 04/05/2023 12:00 AM CDT PascualMoiz, R N Active * Are you blind or do you have serious difficulty seeing, even when wearing glasses? Answer Date of Assessment Author Status Yes 04/05/2023 12:00 AM CDT PascualBuckybit, R N Active * Do you have serious difficulty walking or climbing stairs? Answer Date of Assessment Author Status Yes 04/05/2023 12:30 AM CDT PascualMoiz, R N Active * Do you have difficulty dressing or bathing? Answer Date of Assessment Author Status Yes 04/05/2023 12:30 AM CDT Pascual, Buckybit, R N Active * Because of a physical, mental, or emotional condition, do you have difficulty doing errands alone such as visiting a doctor's office or shopping? Answer Date of Assessment Author Status Yes 04/05/2023 12:30 AM CDT PascualBuckybit, R N Active documented as of this encounter Mental Status * Because of a physical, mental, or emotional condition, do you have serious difficulty concentrating, remembering, or making decisions? Answer Entry Date Author Status Yes 04/05/2023 12:30 AM CDT Moiz Garner R N Active documented in this encounter Plan of Treatment Not on file documented as of this encounter Visit Diagnoses Not on filedocumented in this encounter Additional Health Concerns Infection Onset Date Last Indicated Resolved Time COVID-19 Rule Out 05/08/2023 05/08/2023 05/08/2023 5:42 PM CDT documented as of this encounter Care Teams Registered Dietitian Relationship Specialty Start Date End Date Eneida Reza, RABBET OPERATOR [address] [facility] [address] [place] [phone] PCP - General NURSE PRACTITIONER 04/05/23 Morenita Castillo, ANP- [address] [facility] [address] [place] [phone] Vascular/Copy Supervisor Nurse Practitioner Family 09/18/19 documented as of this encounter
--- OUTSIDE RECORDS SUMMARY | 2025-06-24 11:34 | XMS_ITS | Encounter Summary ---
Author Organization [facility] Address [address] [place] [address] Care Team Providers Care Shoe Designer Name Role Phone Adolfo Beltran MD Primary Care Provider [phone] Morenita Castillo-BC Unavailable [phone] Eneida Reza INDIVIDUAL SMALL GROUP INSTRUCTOR Primary Care Provider [phone] Encounter Details Date Type Department Care Team (Late st Contact Info) Description 07/27/2020 Abstract [facility] [address] [place] [address] Morenita Castillo ANP-BC [address] [facility] [address] [place] [address] Social History Tobacco Use Types Packs/Day Years Used Date Smoking Tobacco: Every Day Cigarettes 1 50 Smokeless Tobacco: Never Alcohol Use Standard Drinks/Week Comments No 0 (1 standard drink = 0.6 oz pur e alcohol) AUDIT-C Answer Date Recorded Frequency of Alcohol Consumption Never 09/09/2019 Average Number of Drinks Not on file 019 Frequency of Binge Drinking Not on file 04/2019 Comments No Sex and Gender Information Value Date Recorded Sex Assigned at Female 05/19/2025 11:46 AM CDT Legal Sex Female 9:22 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 Answer Date of Assessment Author Status No 11/19/2019 4:22 AM PERSONAL DEVELOPMENT MENTOR Activ e * Do you have serious difficulty walking or climbing stairs? Answer Date of Assessment Author Status No 11/19/2019 4:22 AM Anne Brunson RN Active * Do you have difficulty dressing or bathing? Answer Date of Assessment Author Status No 11/19/2019 4:22 AM Anne Brunson RN Active * Because of a physical, mental, or emotional condition, do you have difficulty doing errands alone such as visiting a doctor's office or shopping? Answer Date of Assessment Author Status No 11/19/2019 4:22 AM Anne Brunson RN Active documented as of this encounter Mental Status * Because of a physical, mental, or emotional condition, do you have serious difficulty concentrating, remembering, or making decisions? Answer Entry Date Author Status No 11/19/2019 4:22 AM Anne Brunson RN Active documented in this encounter Plan of Treatment Not on file documented as of this encounter Procedures Procedure Name Priority Date/Time Associated Diagnosis Comments BASIC METABOLIC PANEL Routine 05/27/2020 documented in this encounter Results * BASIC METABOLIC PANEL (05/27/2020) SODIUM S/P/B 138 POTASSIUM S/P/B 3.9 CO2 24 CHLORIDE S/P/B 101 GLUCOSE 119 mg/dL CALCIUM S/P/B 9.0 BUN 5 CREATININE S/P/B 0.92 0.5 - 1.0 EGFR NON-AFR. AMER. 65 <=90 05/27/2020 us Doc [facility] LABORATORY Final Result documented in this encounter Visit Diagnoses Not on filedocumented in this encounter Additional Health Concerns Infection Onset Date Last Indicated Resolved Time COVID-19 Rule Out 05/08/2023 05/08/2023 05/08/2023 5:42 PM CDT documented as of this encounter Care Teams Shoe Designer Relationship Specialty Start Date End Date Adolfo Beltran MD PCP - General FAMILY PRACTICE 09/09/19 04/04/23 Eneida Reza NP [address] [address] PCP - General NURSE PRACTITIONER 04/05/23 Morenita Castillo, ANP- [address] [address] Vascular/Mitochondrial Disorders Counselor Nurse Practitioner Family 09/18/19 documented as of this encounter
--- OUTSIDE RECORDS SUMMARY | 2025-06-24 11:34 | XMS_ITS | Clinical Summary ---
Author Organization [facility] Address [address] [place] [address] Care Team Providers Care Collating Machine Operator Name Role Phone Jonathan Morenita Jessie ANP-BC Unavailable [phone] Eneida Reza NURSE COORDINATOR Primary Care Provider [phone] Allergies Active Allergy Reactions Criticality Noted Date Comments Tape Hives Medium 09/10/2019 Must use paper tape Bee Venom Anaphylaxis High 09/09/2019 Foster Shortness of Breath, Other (see comment) High 11/12/2018 Patient states she foams at the mouth and acts drunk Penicillins Anaphylaxis High 09/09/2019 Medications diphenhydrAMINE 25 MG capsule Take 1 capsule (25 mg total) by mouth 3 (three) times daily as needed for Allergies. Always takes BID Active montelukast 10 MG tablet Take 1 tablet (10 mg total) by mouth daily. Active omeprazole 40 MG capsule Take 1 capsule (40 mg total) by mouth daily. Active oxybutynin 5 MG tablet Take 1 tablet (5 mg total) by mouth 3 (three) times daily. Active famotidine 20 MG tablet Take 1 tablet (20 mg total) by mouth daily. Active ATORVASTATIN 80 MG tablet TAKE 1 TABLET BY MOUTH ONCE DAILY AT BEDTIME . APPOINTMENT REQUIRED FOR FUTURE REFILLS 90 tablet 1 Active carvedilol 3.125 MG tablet Take 1 tablet (3.125 mg total) by mouth 2 (two) times daily. 180 tablet 1 Active ASPIRIN EC 81 MG tablet Take 1 tablet (81 mg total) by mouth daily. 90 tablet 1 Active lamoTRIgine (LAMICTAL) 25 MG tablet Take 1 tablet (25 mg total) by mouth daily. 1 tablet 3 Active cetirizine (ZYRTEC) 10 MG tablet Take 1 tablet (10 mg total) by mouth daily. 3 Active hydrOXYzine (ATARAX) 25 MG tablet Take 1 tablet (25 mg total) by mouth 2 (two) times daily as needed. FOR ANXIETY Active ipratropium-alb uterol (DUONEB) 0.5-2.5 (3) MG/3ML Solution Take by nebulization every 4 (four) hours as needed. 2 Active raNITIdine (ZANTAC) 150 MG tablet Take 1 tablet (150 mg total) by mouth 2 (two) times daily. 3 Active FLUoxetine (PROZAC) 40 MG capsule Take 1 capsule (40 mg total) by mouth daily. 3 Active albuterol sulfate HFA (PROVENTIL HFA) 108 (90 Base) MCG/ACT inhaler Inhale 2 puffs into the lungs every 4 (four) hours as needed for Wheezing. 6.7 g 3 Active traMADol (ULTRAM) 50 MG tabletIndicatio ns:Acute Pain < 7 Day Supply Take 1 tablet (50 mg total) by mouth every 6 (six) hours as needed. Indications: Acute Pain < 7 Day Supply 15 tablet 3 Active Active Problems Problem Noted Date Diagnosed Date COPD (chronic obstructive pu lmonary disease) ([facility]) 05/08/2023 Chest pain 05/06/2023 Assessment & Plan (05/08/2023 8:28 AM CDT): Patient with CAD and recent stent with good result. Her pain is atypical likely noncardiac. Repeat enzymes are normal and pain free overnight, could release and f/u as out patient. S/P drug eluting coronary stent placement 2019 Dyslipidemia 06/07/2020 Assessment & Plan (05/06/2023 3:06 PM CDT): Restart statin. Assessment & Plan (04/07/2023 11:50 AM CDT): Continue high intensity statin therapy. SBO (small bowel obstruction) ([facility]) 11/19/2019 Shortness of breath 09/10/2019 Dyspnea 09/10/2019 NSTEMI (non-ST elevated myoc ardial infarction) ([facility]) 09/09/2019 Assessment & Plan (04/07/2023 11:50 AM CDT): Unstable angina/NSTEMI, patient with CAD and continued smoking. Now s/p PCI stent of diagonal branch. Continue DAPT. She has LV dysfunction. Start on ACEI. Coronary artery disease invo lving eklutna coronary artery of eklutna heart without angina pectoris 09/09/2019 Assessment & Plan (05/07/2023 8:11 AM CDT): Recent stent in diagonal branch. Continue DAPT. No ACS. Her cp was atypical. Continue current meds and f/u of out patient. Tobacco abuse 09/09/2019 Assessment & Plan (05/06/2023 3:06 PM CDT): Patient not ready to quit smoking. Advised patient to quit smoking, she understood and verbalized her understanding. Assessment & Plan (04/07/2023 11:50 AM CDT): Not ready to quit smoking. Advised patient to quit smoking, she understood and verbalized her understanding. Encounters Date Type Department Care Team Description 05/19/2025 8:14 AM CDT - 05/19/2025 12:37 PM CDT Emergency [facility] Emergency [address] [place] [address] Candy Mercedes MD Neurologic Problem Discharge Disposition: Left Against Medical Advice 05/19/2025 Travel from Last 3 Months Immunizations Immunization Administration Dates Next Due Pneumococcal (Pneumovax 23) 09/11/2019 Family History Medical History Relation Comments Coronary artery disease Cousin CHF Mother Heart Disease Mother Relation Status Comments Brother Cousin Father Maternal Grandfather Maternal Grandmother Mother Paternal Grandfather Paternal Grandmother Social History Tobacco Use Types Packs/Day Years Used Date Smoking Tobacco: Every Day Cigarettes 1 50 Smokeless Tobacco: Never Tobacco Cessation:Ready to Q uit: No; Counseling Given: Yes Alcohol Use Standard Drinks/Week Comments No 0 [...] declined 04/05/2023 How often do you attend mu-ism or orthodox serv ices? Patient declined 04/05/2023 Do you belong to any clubs o r organizations such as mu-ism groups, unions, fraternal or athletic groups, or [...] medical care, and heating? Patient declined 04/05/2023 [facility] - Occupational Stress Questionnaire Answer Date Recorded [...] place to sleep or slept in a long term (including now)? 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 Gender Identity Not on file Sexual Orientation Not on file Last Filed Vital Signs Vital Sign Reading Time Taken Comments Blood Pressure 129/67 05/19/2025 10:00 AM CDT Pulse 75 05/19/2025 10:00 AM CDT Temperature 36.1 C (97 F) 05/19/2025 8:16 AM CDT Respiratory Rate 18 05/19/2025 10:00 AM CDT Oxygen Saturation 90% 05/19/2025 10:00 AM CDT Inhaled Oxygen Concentration - - Weight 100.7 kg (222 lb) 05/19/2025 8:16 AM CDT Height 157.5 cm (5' 2) 05/19/2025 8:16 AM CDT Body Mass Index 40.6 05/19/2025 8:16 AM CDT Plan of Treatment Health Maintenance Due Date Last Done Comments ASCVD Statin 1955 Colorectal Cancer Screening Colonoscopy (10 Years) 1955 Hepatitis C 02/06/1972 DTaP, Tdap and Td Vaccines ( 1 - Tdap) 1973 Lung Cancer Screening 02/06/2004 Zoster Vaccines (1 of 2) 02/06/2004 RSV Immunization or 60+ Years (1 - Risk 60-74 years 1-dose series) 2014 Dexa Scan (General) 2019 Mammogram Screening 11/17/2020 11/17/2018 ASCVD LDL 04/05/2024 04/05/2023, 09/10/2019, 09/09/2019 COVID-19 Vaccine (1 - 2023-2 5 season) 2024 Pneumococcal Vaccine: 50+ Years Completed 09/11/2019, 08/22/2015, 09/13/2014 Meningococcal B Vaccine Aged Out No l onger eligible based on patient's age to complete this topic Meningococcal Vaccine Aged Out No robert trav eligible based on patient's age to complete this topic RSV Immunizations Under 20 Months Aged Out No longer eligible b ased on patient's age to complete this topic Goals Goal Patient Goal Type Associated Problems Recent Progress Patient-Stated? Author Safety Patient/family will have appropriate support at home upon discharge Lifestyle Marialuisa Lozano RN Medical Devices Implanted Type Area Lead Dental Assistant Device Identifier Shelf Expiration Date Model / Serial / Lot Cv Xience Laura Chris-Rca-2018 Implanted:04/2019 by Jaden Hogue MD (Quantity not on file) Stent Coronary RCA SON VASCULAR 02/02/2020 [id number] / / [id number] Cv Xience Laura Chris-Rca-2018 Implanted:04/2019 by Jaden Hogue MD (Quantity not on file) Stent Coronary RCA SON VASCULAR 04/26/2020 [id number] / / [id number] Cv [facility] Startex Chris-Lad- 023 Implanted:01/2023 by Sherie Natarajan MD (Quantity not on file) Stent Coronary LAD BIOTRONIK 12/01/2024 [id number] / / [id number] Procedures Procedure Name Priority Date/Time Associated Diagnosis Comments LIPID PANEL Routine 04/05/2023 5:14 AM CDT from Last 3 Months or Most Recently Relevant to Health Maintenance Results * LIPID PANEL (04/05/2023 5:14 AM CDT) Pathologist [facility] CHOLESTEROL 145 MG/DL 04/05/2023 6:18 AM CDT [facility] Comment:DESIRABLE: <200 TRIGLYCERIDES 206 MG/DL 04/05/2023 6:18 AM CDT [facility] Comment:200-499 HIGH HDL 53 >49 MG/DL 04/05/2023 6:18 AM CDT [facility] LDL (CALCULATED) 51 MG/DL 04/05/20 6:18 AM CDT [facility] Comment:<100 OPTIMAL VLDL CALCULATION 41 MG/DL 04/05/20 6:18 AM CDT [facility] Comment:REFERENCE RANGE NOT ESTABLISHED CHOL/HDL RATIO 2.7 04/05/2023 6:18 AM CDT [facility] Comment:REFERENCE RANGE NOT ESTABLISHED LDL/HDL 1.0 04/05/2023 6:18 AM CDT [facility] Comment:REFERENCE RANGE NOT ESTABLISHED NON HDL CHOLESTEROL 92 MG/DL 04/05/2023 6:18 AM CDT [facility] Comment:REFERENCE RANGE NOT ESTABLISHED 04/05/2023 5:14 AM CDT us Viraj Osorio MD LABORATORY Final Result [facility] [address] [place] [address], [id number] from Last 3 Months or Most Recently Relevant to Health Maintenance Insurance [employer] Advance Directives * Full Code (Latest Code Status on File) Date Activated Date Inactivated Comments 05/06/2023 3:24 PM 05/09/2023 3:07 PM * Full Code Date Activated Date Inactivated Comments 04/05/2023 12:17 AM 04/07/2023 2:37 PM * Full Code Date Activated Date Inactivated Comments 11/19/2019 8:01 AM 11/19/2019 7:04 PM * Full Code Date Activated Date Inactivated Comments 09/10/2019 4:23 PM 09/11/2019 1:40 PM * Full Code Date Activated Date Inactivated Comments 09/09/2019 2:31 PM 09/10/2019 12:57 PM Care Teams Collating Machine Operator Relationship Specialty Start Date End Date Eneida Reza NP [address] [facility] [address] [place] [phone] PCP - General NURSE PRACTITIONER 04/05/23 Morenita Castillo, [facility]- [address] [facility] [address] [place] [phone] Vascular/Electro Mechanical Engineer Nurse Practitioner Family 09/18/19
[2025-06-24 11:40] LABS: Alanine Aminotransferase 17 U/L (6-35); Albumin Level 4.2 g/dL (3.5-5.1); Alkaline Phosphatase 106 U/L (38-126); Anion Gap 8 mmol/L (4-12); Aspartate Amino Transferase 24 U/L (14-36); Bilirubin,Total 0.4 mg/dL (0.2-1.3); Blood Urea Nitrogen 33 mg/dL (7-17); Calcium 9.4 mg/dL (8.4-10.2); Carbon Dioxide 30 mmol/L (22-30); Chloride 99 mmol/L (98-107); Estimated Glomerular Filt Rate 26; Glucose 116 mg/dL (65-110); Osmolality Calculated 292 mOsm/kg (285-295); Potassium 4.6 mmol/L (3.4-5.0); Sodium 137 mmol/L (137-145); Total Protein 6.9 g/dL (6.3-8.2)
[2025-07-02 13:08] LABS: ANA by IFA Rfx Titer/Pattern Negative (.)
== END 2025-06-24 10:49 | disposition home or self-care (01) ==
PROVIDERS: PCP Nurse Practitioner Family; Visit Provider Nurse Practitioner Family
DX: M19.90 Unspecified osteoarthritis, unspecified site (principal); G25.81 Restless legs syndrome; R53.83 Other fatigue
CPT/HCPCS: 36415; 80053; 85025; 86038; 86430

== ENCOUNTER 2025-07-30 00:06 | Emergency (ER) | payer OTHER, SELFPAY ==
--- OUTSIDE RECORDS SUMMARY | 2025-07-30 00:08 | XMS_ITS | Clinical Summary ---
Author Organization [facility] Address [address] [place] [address] Care Team Providers Care Linux Systems Analyst Name Role Phone Jonathan Morenita Jessie ANP-BC Unavailable [phone] Eneida Reza STATION BAGGAGE PORTER Primary Care Provider [phone] Allergies Active Allergy Reactions Criticality Noted Date Comments Tape Hives Medium 09/10/2019 Must use paper tape Bee Venom Anaphylaxis High 09/09/2019 [place] Shortness of Breath, Other (see comment) High [...] COPD (chronic obstructive pu lmonary disease) ([facility]) 05/08/2023 Chest pain 05/06/2023 Assessment [...] intensity statin therapy. SBO (small bowel obstruction) ([facility]) 11/19/2019 Shortness of breath 09/10/2019 Dyspnea 09/10/2019 NSTEMI (non-ST elevated myoc ardial infarction) ([facility]) 09/09/2019 Assessment & Plan (04/07/2023 11:50 AM CDT): Unstable angina/NSTEMI, patient with CAD and continued smoking. Now s/p PCI stent of diagonal branch. Continue DAPT. She has LV dysfunction. Start on ACEI. Coronary artery disease invo lving [place] coronary artery of [place] heart without angina pectoris 09/09/2019 Assessment & [...] CDT - 05/19/2025 12:37 PM CDT Emergency [facility] Emergency [address] [place] [address] Candy Mercedes MD Neurologic Problem Discharge Disposition: [...] declined 04/05/2023 How often do you attend jewish or denominational serv ices? Patient declined 04/05/2023 Do you belong to any clubs o r organizations such as jewish groups, unions, fraternal or athletic groups, or [...] medical care, and heating? Patient declined 04/05/2023 [facility] - Occupational Stress [...] place to sleep or slept in a intermediate (including now)? Patient refused 04/05/2023 Comments No Sex and Gender Information Value Date Recorded Sex Assigned at Female 05/19/2025 11:46 AM CDT Legal Sex Female 9:22 AM CAP MAKER Gender Identity Not on file Sexual Orientation [...] COVID-19 Vaccine (1 - 2023-2 5 season) 2025 Pneumococcal Vaccine: 50+ Years Completed 09/11/2019, 08/22/2015, [...] Lozano RN Medical Devices Implanted Type Area Kst Operator Device Identifier Shelf Expiration Date Model / Serial / Lot Cv Xience Laura Chris-Rca-2018 Implanted:04/2019 by Jaden Hogue MD (Quantity not on file) Stent Coronary RCA SON VASCULAR 02/02/2020 [id number] / / [id number] Cv Xience Laura Chris-Rca-2018 Implanted:04/2019 by Jaden Hogue MD (Quantity not on file) Stent Coronary RCA SON VASCULAR 04/26/2020 [id number] / / [id number] [facility] [place] Chris-Lad- 023 Implanted:01/2023 by Sherie Natarajan MD (Quantity not on file) Stent Coronary LAD BIOTRONIK 12/01/2024 [id number] / / [id number] Procedures Procedure Name Priority Date/Time Associated Diagnosis Comments LIPID PANEL Routine 04/05/2023 5:14 AM CDT from Last 3 Months or Most Recently Relevant to Health Maintenance Results * LIPID PANEL (04/05/2023 5:14 AM CDT) Pathologist [facility] CHOLESTEROL 145 MG/DL 04/05/2023 6:18 AM CDT [facility] Comment:DESIRABLE: <200 TRIGLYCERIDES 206 MG/DL 04/05/2023 6:18 AM CDT [facility] Comment:200-499 HIGH HDL 53 >49 MG/DL 04/05/2023 6:18 AM CDT [facility] LDL (CALCULATED) 51 MG/DL 04/05/20 6:18 AM CDT [facility] Comment:<100 OPTIMAL VLDL CALCULATION 41 MG/DL 04/05/20 6:18 AM CDT [facility] Comment:REFERENCE RANGE NOT ESTABLISHED CHOL/HDL RATIO 2.7 04/05/2023 6:18 AM CDT [facility] Comment:REFERENCE RANGE NOT ESTABLISHED LDL/HDL 1.0 04/05/2023 6:18 AM CDT [facility] Comment:REFERENCE RANGE NOT ESTABLISHED NON HDL CHOLESTEROL 92 MG/DL 04/05/2023 6:18 AM CDT [facility] Comment:REFERENCE RANGE NOT ESTABLISHED 04/05/2023 5:14 AM CDT us Viraj Osorio MD LABORATORY Final Result [facility] [address] [place] [address], [id number] from Last 3 Months or Most Recently [...] 2:31 PM 09/10/2019 12:57 PM Care Teams Linux Systems Analyst Relationship Specialty Start Date End Date Eneida Reza NP [address] [facility] [address] [place] [id number] PCP - General NURSE PRACTITIONER 04/05/23 Morenita Castillo, [facility]- [address] [facility] [address] [place] [phone] Vascular/Manager Heavy Duty Nurse Practitioner Family 09/18/19
--- OUTSIDE RECORDS SUMMARY | 2025-07-30 00:08 | XMS_ITS | Encounter Summary ---
Author Organization [facility] Address [address] [place] [address] Care Team Providers Care Accounting Administrator Name Role Phone Morenita Castillo ANP-BC Unavailable [phone] Eneida Reza SURGICAL SERVICES MANAGER Primary Care Provider [phone] Encounter Details Date Type Department Care Team (Late st Contact Info) Description 04/08/2023 Hospital Follow-up Call [facility] [address] [place] [address] Monet Urban, RN Social History [...] declined 04/05/2023 How often do you attend sabianism or restorationist serv ices? Patient declined 04/05/2023 Do you belong to any clubs o r organizations such as sabianism groups, unions, fraternal or athletic groups, or [...] medical care, and heating? Patient declined 04/05/2023 [facility] - Occupational Stress Questionnaire Answer Date Recorded [...] place to sleep or slept in a detention (including now)? Patient refused 04/05/2023 Comments No Sex and Gender Information Value Date Recorded Sex Assigned at Female 05/19/2025 11:46 AM CDT Legal Sex Female 9:22 AM FACILITIES PROJECT MANAGER Gender Identity Not on file Sexual Orientation [...] documented as of this encounter Care Teams Accounting Administrator Relationship Specialty Start Date End Date Eneida Reza, SURGICAL SERVICES MANAGER [address] [facility] [address] [place] [phone] PCP - General NURSE PRACTITIONER 04/05/23 Morenita Castillo, ANP- [address] [facility] [address] [place] [phone] Vascular/Metal Or Wood Blocker Nurse Practitioner Family 09/18/19 documented as of this encounter
--- OUTSIDE RECORDS SUMMARY | 2025-07-30 00:08 | XMS_ITS | Encounter Summary ---
Author Organization [facility] Address [address] [place] [address] Care Team Providers Care Post Acute Care Registered Nurse Name Role Phone Adolfo Beltran MD Primary Care Provider [phone] Morenita Castillo-BC Unavailable [phone] Eneida Reza HYDROGRAPHIC ENGINEER Primary Care Provider [phone] Encounter Details Date Type Department Care Team (Late st Contact Info) Description 07/27/2020 Abstract [facility] [address] [place] [address] Morenita Castillo ANP-BC [address] [facility] [address] [place] [address] Social History Tobacco Use Types [...] AM CDT Legal Sex Female 9:22 AM MONITORING ENGINEER Gender Identity Not on file Sexual Orientation Not on file documented as of this encounter Functional Status * RETIRED Are you deaf or do you have serious difficulty hearing Answer Date of Assessment Author Status No 11/19/2019 4:22 AM MONITORING ENGINEER Activ e * RETIRED Are you blind or do you have serious difficulty seeing, even when wearing glasses? Answer Date of Assessment Author Status No 11/19/2019 4:22 AM MONITORING ENGINEER Activ e * Do you have serious [...] documented as of this encounter Care Teams Post Acute Care Registered Nurse Relationship Specialty Start Date End Date Adolfo Beltran MD PCP - General FAMILY PRACTICE 09/09/19 04/04/23 Eneida Reza NP [address] [address] PCP - General NURSE PRACTITIONER 04/05/23 Morenita Castillo, ANP- [address] [address] Vascular/Hot Saw Helper Nurse Practitioner Family 09/18/19 documented as of this encounter
[2025-07-30 00:10] VITALS: BP 158/65; PULSE 80; RESP 20; TEMP 37; O2SAT 100
--- NOTE | 2025-07-30 00:12 | ED.GENADULT ---
HPI - General Adult General Stated complaint: Swelling in extremities Time Seen by Provider: 07/30/25 00:11 Source: patient and EMS Mode of arrival: EMS Limitations: no limitations History of Present Illness HPI narrative: this is a 70-year-old female with history of CAD presents via EMS with some increased edema to lower extremities and hands nonpitting with no shortness of breath no audible wheezing no chest pain no fever chills no nausea vomiting or abdominal pain. Onset (ago): day(s) Severity: mild Related Data Home Medications ?Medication ?Instructions ?Recorded ?Confirmed ?Last Taken ?Type atorvastatin 80 mg tablet 80 mg PO DAILY 11/08/22 11/08/22 Unknown History budesonide-formoterol HFA 160 puff inhalation DAILY 11/08/22 Unknown History mcg-4.5 mcg/actuation aerosol inhaler (Symbicort) carvedilol 3.125 mg tablet 3.125 mg PO DAILY 11/08/22 11/08/22 Unknown History cetirizine 10 mg tablet 10 mg PO DAILY 11/08/22 11/08/22 Unknown History clorazepate dipotassium 7.5 mg 7.5 mg PO DAILY 11/08/22 11/08/22 Unknown History tablet famotidine 20 mg tablet 20 mg PO DAILY 11/08/22 11/08/22 Unknown History fluoxetine 40 mg capsule 40 mg PO DAILY 11/08/22 11/08/22 Unknown History fluticasone propionate 220 1 puff inhalation PRN PRN 11/08/22 11/08/22 Unknown History mcg/actuation HFA aerosol inhaler Shortness Of Breath Or Wheezing (Flovent HFA) hydrochlorothiazide 25 mg tablet 25 mg PO DAILY 11/08/22 11/08/22 Unknown History ipratropium 0.5 mg-albuterol 3 mg 3 ml inhalation Q6H PRN Shortness 11/08/22 11/08/22 Unknown History (2.5 mg base)/3 mL nebulization Of Breath Or Wheezing soln losartan 25 mg tablet 25 mg PO DAILY 11/08/22 11/08/22 Unknown History montelukast 10 mg tablet 10 mg PO DAILY 11/08/22 11/08/22 Unknown History omeprazole 40 mg capsule,delayed 40 mg PO DAILY 11/08/22 11/08/22 Unknown History release sumatriptan succinate 50 mg tablet mg PO 11/08/22 Unknown History Allergies Allergy/AdvReac Type Severity Reaction Status Date / Time lithium AdvReac Severe Unconscious Verified 05/19/25 02:54 [place] AdvReac Severe Anaphylactic Uncoded 05/19/25 02:54 Shock Review of Systems Review of Systems: All systems reviewed & are unremarkable except as noted in HPI and below PMFSH Past Medical History Medical History Hypertension Dyslipidemia CAD (coronary artery disease) COPD (chronic obstructive pulmonary disease) Social History Social History Smoking packs per day: 1 Smoking cigarettes per day: 20.0 Exam Const: General: healthy appearing, no acute distress and alert Nutritional Appearance: well nourished and obese Orientation/consciousness: patient oriented x3 Limitations: no limitations Neck: Neck: normal visual inspection, no lymphadenopathy and no meningeal signs Chest: Chest palpation & inspection: normal inspection of the chest Resp: Effort & Inspection: normal respiratory effort Auscultation: clear to auscultation bilaterally Cardio: Rate: regular rate Rhythm: regular rhythm GI: GI Palp: Yes Soft to palpation Auscultation: normal bowel sounds Skin: General skin exam: normal color Rashes: no rashes Wounds: no wounds Neuro: General: patient oriented x3 and moves all extremities Extrem: General: edema Other: Nonpitting edema lower extremities Course Course Emergency Course: patient received 40mg IM Lasix and a dose of albuterol 2 puffs, patient currently vitals are stable with no shortness of breath no chest pain no JVD with no pitting edema. Critical Care Time Critical Care Time Critical Care Time: No Discharge Plan Discharge Clinical Impression: Edema Qualifiers: Edema type: unspecified Qualified Code(s): R60.9 - Edema, unspecified COPD (chronic obstructive pulmonary disease) Qualifiers: COPD type: unspecified COPD Qualified Code(s): J44.9 - Chronic obstructive pulmonary disease, unspecified Patient Disposition: Home Condition: Stable Instructions: Antibiotic Form, Emphysema (ED), Edema (ED) Additional Instructions: advised patient to continue her current medical regimen and follow with primary within the next 2 3 to 5 days for further evaluation and treatment. Patient Language: Portuguese Prescriptions: No Action albuterol sulfate 90 mcg/actuation HFA aerosol inhaler 2 puff inhalation QID PRN (Reason: shortness of breath or wheezing) Qty: 8.5 0RF sucralfate [Carafate] 1 gram tablet 1 g PO BID 30 Days Qty: 60 0RF fluoxetine 40 mg capsule 40 mg PO DAILY atorvastatin 80 mg tablet 80 mg PO DAILY cetirizine 10 mg tablet 10 mg PO DAILY sumatriptan succinate 50 mg tablet PO omeprazole 40 mg capsule,delayed release(DR/EC) 40 mg PO DAILY carvedilol 3.125 mg tablet 3.125 mg PO DAILY famotidine 20 mg tablet 20 mg PO DAILY losartan 25 mg tablet 25 mg PO DAILY montelukast 10 mg tablet 10 mg PO DAILY fluticasone propionate [Flovent HFA] 220 mcg/actuation HFA aerosol inhaler 1 puff INHALATION PRN PRN (Reason: Shortness Of Breath Or Wheezing) hydrochlorothiazide 25 mg tablet 25 mg PO DAILY clorazepate dipotassium 7.5 mg tablet 7.5 mg PO DAILY budesonide-formoterol [Symbicort] 160-4.5 mcg/actuation HFA aerosol inhaler INHALATION DAILY ipratropium-albuterol 0.5 mg-3 mg(2.5 mg base)/3 mL solution for nebulization 3 ml inhalation Q6H PRN (Reason: Shortness Of Breath Or Wheezing) fluoxetine 40 mg capsule 40 mg PO DAILY Qty: 30 0RF clorazepate dipotassium 7.5 mg tablet 7.5 mg PO BID PRN (Reason: anxiety) Qty: 20 0RF azithromycin [Zithromax Z-Jose] 250 mg tablet See Rx Instructions .ROUTE .COMPLEX Qty: 6 0RF Rx Instructions: For 250 mg dose pack: take 500 mg today (day 1), then 250 mg for 4 days (days 2-5) Follow-up/Referrals: Daina,Jonathan Mcmahan NP [Primary Care Provider, Family Practice] Time of Disposition: 00:18
[2025-07-30 00:19] VITALS: PULSE 80; RESP 18; O2SAT 97
[2025-07-30] MEDS: FUROSEMIDE INJ 40 MG/4 ML VIAL IM (00:23)
[2025-07-30] MEDS: ALBUTEROL SULFATE (*SP) INHALER 2 PUFF INHALATION (00:23)
--- NOTE | 2025-07-30 00:34 | PC.NURSE ---
PATIENT HAS BEDSIDE COMMODE BY THE BED. AWARE THAT STAFF IS MEASURING HER URINE OUTPUT. CALL LIGHT IN REACH. DENIES ANY NEEDS. STATES SHE IS NOT SURE IF SHE CAN FIND SOMEONE TO PICK HER UP JUST YET.
--- NOTE | 2025-07-30 01:02 | PC.NURSE ---
PATIENT IS RESTING QUIETLY ON STRETCHER. APPEARS TO BE SLEEPING. RESP EVEN AND UNLABORED. CALL LIGHT IN REACH. BEDSIDE COMMODE NEXT TO BED
--- NOTE | 2025-07-30 02:05 | PC.NURSE ---
PATIENT APPEARS TO BE SLEEPING. RESP EVEN AND UNLABORED. CALL LIGHT IN REACH
[2025-07-30 03:07] VITALS: BP 110/62; PULSE 79; RESP 15; TEMP 36.6; O2SAT 97
--- NOTE | 2025-07-30 03:13 | PC.NURSE ---
PATIENT GOT UP TO BEDSIDE COMMODE. UNABLE TO FIND RIDE HOME AT THIS TIME. LAID BACK DOWN ON STRETCHER. CALL LIGHT IN REACH.
--- NOTE | 2025-07-30 04:00 | PC.NURSE ---
RESTING QUIETLY ON STRETCHER. APPEARS TO BE SLEEPING. RESP EVEN AND UNLABORED. CALL LIGHT IN REACH
--- NOTE | 2025-07-30 05:00 | PC.NURSE ---
PATIENT APPEARS TO BE SLEEPING. RESP EVEN AND UNLABORED. CALL LIGHT IN REACH
--- NOTE | 2025-07-30 05:38 | PC.NURSE ---
WOKE PATIENT AND ENCOURAGED HER TO TRY AND CALL FOR A RIDE HOME.
[2025-07-30 06:00] VITALS: BP 122/70; PULSE 82; RESP 18; O2SAT 94
== END 2025-07-30 06:00 | disposition home or self-care (01) ==
LOC: CHSED 00:21
PROVIDERS: Emergency Provider Emergency Medicine; PCP Nurse Practitioner Family
DX: R60.9 Edema, unspecified (principal); I25.10 Atherosclerotic heart disease of native coronary artery without angina pectoris; I10 Essential (primary) hypertension; E78.5 Hyperlipidemia, unspecified; J44.9 Chronic obstructive pulmonary disease, unspecified; F17.210 Nicotine dependence, cigarettes, uncomplicated
CPT/HCPCS: 96372; 99283; A9270; J1938

== ENCOUNTER 2025-09-17 16:20 | Observation (INO) | payer OTHER, SELFPAY ==
[2025-09-17] VITALS (15 sets, daily range): BP systolic 118–159; BP diastolic 78–92; PULSE 86–96; RESP 13–25; TEMP 36.1; O2SAT 94–97; BMI 40.8
--- NOTE | ~2025-09-17 | XR_ITS ---
XR chest 1V portable INDICATION:chest pain, shortness of breath . REFERENCE: 03/27/2025 FINDINGS: A single AP of the chest demonstrates normal heart size. The lungs are clear. There is no evidence of pneumothorax or pleural effusion. IMPRESSION: No acute pulmonary findings. Reviewed, dictated and finalized at location S. ENGINEER
--- NOTE | ~2025-09-17 | CT_ITS ---
CTA chest PE protocol HISTORY:chest pain, shortness of breath, elevated d-dimer . COMPARISON: None. TECHNIQUE: Following the noncontrasted engraver picture, axial images of the thorax were obtained following infusion of 100 cc of Isovue 370. Post-processing on an independent workstation was performed to reconstruct MIP images for evaluation of the thoracic vasculature. FINDINGS: String-like filling defect within the posterior right lower lobe pulmonary artery suggestive of chronic pulmonary emboli. No aortic aneurysm or dissection. There are diffuse centrilobular emphysema. Mild subpleural reticulation are noted at the lung bases. No discrete pulmonary nodule. No focal consolidation, pleural effusions or pneumothorax. There is no axillary, mediastinal or hilar adenopathy. Limited evaluation of the upper abdomen demonstrates no gross abnormalities. Review of bone windows demonstrates no osteoblastic or lytic lesions. IMPRESSION: Chronic pulmonary embolus within the posterior right lower lobe pulmonary artery. Extensive centrilobular emphysema. All CT scans at this facility are performed using low dose modulation techniques as appropriate to perform exam including the following: automated exposure control; use of iterative reconstruction technique; adjustment of the mA and/or kV according to patient size (this includes techniques or standardized protocols for targeted exams where dose is matched to indication/reason for exam). Reviewed, dictated and finalized at location S. ER STOCK LAYER IMPRESSION: Chronic pulmonary embolus within the posterior right lower lobe pulmonary arter y. Extensive centrilobular emphysema. All CT scans at this facility are performed using low dose modulation techniqu es as appropriate to perform exam including the following: automated exposure c ontrol; use of iterative reconstruction technique; adjustment of the mA and/or kV according to patient size (this includes techniques or standardized protocol s for targeted exams where dose is matched to indication/reason for exam).
--- NOTE | 2025-09-17 16:23 | ECG_ITS ---
Test Date: 2025-09-17 16:30:02 Measurements Intervals [place] Rate: 86 P: 61 KS: 167 QRS: 63 QRSD: 93 T: 61 QT: 353 QTc: 423 Interpretive Statements SINUS RHYTHM Compared to ECG 04/26/2025 01:12:41 No significant changes Electronically Signed On 09-20-2025 12:07:23 ACCOUNTING SPECIALIST by Uli Arteaga M.D.
--- NOTE | 2025-09-17 16:33 | ED.CHESTPAIN ---
HPI - Chest Pain General Chief Complaint: Chest Pain Stated Complaint: chest pain Source: patient and EMS Mode of arrival: EMS Limitations: no limitations History of Present Illness HPI narrative: Patient is a 70-year-old female with coronary disease having 2 PR in the past and the last 1 was 2022 with [address] having chest pain and shortness of breath at this time. She has been having cough with some clear phlegm. She is very worked up and anxious about her complaints. Patient was given aspirin nitro EN route with good results. At this time, symptoms are mostly resolved. 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) Onset (ago): day(s) (4) Timing of current episode: episodic Prior episodes: Yes Onset: during rest Pain location: substernal Pain radiation: none Severity: mild Pain scale (0-10): 2 Quality: tightness Relieving factors: nitroglycerin Exacerbating factors: nothing Context: other (Patient having chest pain and shortness of breath with phlegm of clearness as well) Associated symptoms: dyspnea and sense of impending doom Treatment prior to arrival: aspirin, nitroglycerin and oxygen Risk Factors Coronary artery disease risk factors: smoking history, hyperlipidemia and hypertension Thoracic aortic dissection risk factors: none Related Data On Oral Contraceptives: No Home Medications ?Medication ?Instructions ?Recorded ?Confirmed ?Last Taken ?Type atorvastatin 80 mg tablet 80 mg PO DAILY 11/08/22 11/08/22 Unknown History budesonide-formoterol HFA 160 puff inhalation DAILY 11/08/22 Unknown History mcg-4.5 mcg/actuation aerosol inhaler (Symbicort) carvedilol 3.125 mg tablet 3.125 mg PO DAILY 11/08/22 11/08/22 Unknown History cetirizine 10 mg tablet 10 mg PO DAILY 11/08/22 11/08/22 Unknown History clorazepate dipotassium 7.5 mg 7.5 mg PO DAILY 11/08/22 11/08/22 Unknown History tablet famotidine 20 mg tablet 20 mg PO DAILY 11/08/22 11/08/22 Unknown History fluoxetine 40 mg capsule 40 mg PO DAILY 11/08/22 11/08/22 Unknown History fluticasone propionate 220 1 puff inhalation PRN PRN 11/08/22 11/08/22 Unknown History mcg/actuation HFA aerosol inhaler Shortness Of Breath Or Wheezing (Flovent HFA) hydrochlorothiazide 25 mg tablet 25 mg PO DAILY 11/08/22 11/08/22 Unknown History ipratropium 0.5 mg-albuterol 3 mg 3 ml inhalation Q6H PRN Shortness 11/08/22 11/08/22 Unknown History (2.5 mg base)/3 mL nebulization Of Breath Or Wheezing soln losartan 25 mg tablet 25 mg PO DAILY 11/08/22 11/08/22 Unknown History montelukast 10 mg tablet 10 mg PO DAILY 11/08/22 11/08/22 Unknown History omeprazole 40 mg capsule,delayed 40 mg PO DAILY 11/08/22 11/08/22 Unknown History release sumatriptan succinate 50 mg tablet mg PO 11/08/22 Unknown History Allergies Allergy/AdvReac Type Severity Reaction Status Date / Time bee venom protein (honey bee) Allergy Severe Anaphylaxis Verified 09/17/25 16:29 Penicillins Allergy Unknown Unknown Verified 09/17/25 16:29 lithium AdvReac Severe Unconscious Verified 09/17/25 16:29 Review of Systems Constitutional: Constitutional: Reports no additional constitutional complaints Eyes: Eyes: Reports as per HPI and Reports no additional eye complaints ENT: Reports system reviewed and no additional complaints, except as documented Cardiovascular: Cardiovascular: Reports no additional cardiovascular complaints Respiratory: Respiratory: Reports no additional respiratory complaints Gastrointestinal: Gastrointestinal: Reports no additional gastrointestinal complaints Genitourinary: Genitourinary: Reports no additional female genitourinary complaints Musculoskeletal: Musculoskeletal: Reports no additional musculoskeletal complaints Integumentary/Breasts: Skin/Breast: Reports system reviewed and no additional complaints, except as docu Neurologic: Reports system reviewed and no additional complaints, except as documented Psychiatric: Psychiatric: Reports no additional psychiatric complaints PMFSH Past Medical History Medical History Hypertension Dyslipidemia CAD (coronary artery disease) COPD (chronic obstructive pulmonary disease) Social History Social History Smoking packs per day: 1 Smoking cigarettes per day: 20.0 Exam Const: General: healthy appearing Nutritional Appearance: well nourished Orientation/consciousness: patient oriented x3 HENMT: Head: normal to inspection Ears: external ears normal Face/Nose/Sinus: Normal external nose present Eyes: Conjunctivae: conjunctivae normal Pupils: Equal, round and reactive pupils present EOM: EOMs intact bilaterally Neck: Neck: normal visual inspection Chest: Chest palpation & inspection: normal inspection of the chest Resp: Effort & Inspection: normal respiratory effort, not labored, no retractions and not tachypneic Auscultation: clear to auscultation bilaterally Cardio: Rate: regular rate Rhythm: regular rhythm Heart sounds: no murmurs : General: Yes bladder normal to palpation Back/Spine/Pelvis: Back: no CVA tenderness Skin: General skin exam: normal color Rashes: no rashes Wounds: no wounds Neuro: General: patient oriented x3, moves all extremities, no meningeal signs, no focal motor deficits and CN's II-XI intact bilaterally Psych: Mental Status: mental status grossly normal Affect: normal affect Attitude: cooperative Course Vital Signs Vital signs: Vital Signs Temperature 36.1 C L 09/17/25 16:20 Pulse Rate 90 09/17/25 16:20 Respiratory Rate 18 09/17/25 16:20 Blood Pressure 140/82 09/17/25 16:20 Pulse Oximetry 97 09/17/25 16:20 Oxygen Delivery Room Air 09/17/25 16:20 Temperature 36.1 C L 09/17/25 16:20 Pulse Rate 90 09/17/25 16:20 Respiratory Rate 18 09/17/25 16:20 Blood Pressure 140/82 09/17/25 16:20 Pulse Oximetry 96 09/17/25 16:20 Oxygen Delivery Room Air 09/17/25 16:20 MDM - Chest Pain MDM Narrative Medical decision making narrative: Patient is a 70-year-old female with some chest pain and shortness of breath with a cough and clear phlegm for the past 4 days. We will do a cardiopulmonary workup at this time. Patient has a chronic PE which was not noted in April of this year on a CTA. There is a new chronic PE sometime in the last few months that has occurred. We will treat this PE as she is symptomatic. Lovenox now. She will need to be switched to anticoagulation inpatient. Lab Data Attestation: I reviewed the patient's lab results. 09/17/25 16:56 09/17/25 16:56 Labs: Lab Results 09/17/25 09/17/25 Range/Units 16:56 16:59 WBC 5.9 (4.8-10.8) K/mm3 RBC 4.58 (4.20-5.40) M/mm3 Hgb 13.9 H (11.7-13.8) g/dL Hct 43.1 H (35.0-42.0) % MCV 94.1 (78.0-102.0) fL MCH 30.3 (27.0-31.0) pg MCHC 32.3 (32-36) g/dL RDW 13.5 (11.6-14.4) % Plt Count 204 (150-420) K/mm3 MPV 8.4 L (9.2-11.8) fl Immature Gran % (Auto) 0.2 H (0.0-0.0) % Neut % (Auto) 59.4 (50.0-70.0) % Lymph % (Auto) 31.2 (18.0-42.0) % Warren % (Auto) 5.6 (2.0-11.0) % Eos % (Auto) 2.7 (1.0-6.0) % Baso % (Auto) 0.9 (0.0-1.0) % Lymph # (Auto) 1.83 (1.10-4.50) K/mm3 Warren # (Auto) 0.33 (0.10-0.90) K/mm3 Eos # (Auto) 0.16 (0.02-0.50) K/mm3 Baso # (Auto) 0.05 (0.00-0.10) K/mm3 Abs Immat Gran (auto) 0.01 H (0.00-0.00) K/mm3 Absolute Neuts (auto) 3.49 (1.70-7.20) K/mm3 Absolute Nucleated RBC 0.00 (0.00-0.00) K/mm3 Nucleated RBC % 0.0 (0-0.0) % PT 10.3 (9.50-12.1) Seconds INR 0.9 APTT 24.1 (23.9-30.70) Sec D-Dimer 4.03 H (0.19-0.50) mg/L Sodium 140 (137-145) mmol/L Potassium 4.3 (3.4-5.0) mmol/L Chloride 100 (98-107) mmol/L Carbon Dioxide 30 (22-30) mmol/L Anion Gap 10 (4-12) mmol/L BUN 30 H (7-17) mg/dL Creatinine 1.40 H (0.7-1.0) mg/dL Estim Creat Clear Calc 38 ml/min Estimated GFR 37 L (59 - ) Glucose 122 H (65-110) mg/dL Calculated Osmolality 297 H (285-295) mOsm/kg Lactic Acid 1.3 (0.7-2.0) mmol/L Calcium 9.3 (8.4-10.2) mg/dL Total Bilirubin 1.7 H (0.2-1.3) mg/dL AST 31 (14-36) U/L ALT 21 (6-35) U/L Alkaline Phosphatase 96 (38-126) U/L Troponin I < 0.012 (0.000-0.034) ng/mL NT-Pro-B Natriuret Pep 31 (19.9-100) pg/mL Total Protein 7.8 (6.3-8.2) g/dL Albumin 4.7 (3.5-5.1) g/dL Urine Color Yellow (Yellow) Urine Appearance Clear (Clear) Urine pH 6.5 (5.0-8.0) Ur Specific Lohn 1.010 (1.010-1.020) Urine Protein Negative (Negative) Urine Glucose (UA) Negative (Negative) Urine Ketones Negative (Negative) Ur Blood (Man) Negative (Negative) Urine Nitrate Negative (Negative) Urine Bilirubin Negative (Negative) Urine Urobilinogen 0.2 (0.2-1.0) mg/dL Leukocyte Esterase Rfl Negative (Negative) TOSIN/UL Influenza A (RT-PCR) Negative (Negative) Influenza B (RT-PCR) Negative (Negative) RSV (RT-PCR) Negative (Negative) SARS-CoV-2 RNA (RT-PCR) Negative (Negative) Imaging Data Attestation: I personally reviewed and interpreted this imaging study as follows: Radiologist's impression: Chest x-rays negative for acute process CTA of the chest for PE shows chronic PE but comparison of a CTA done in April of this year was negative for PE ECG Data EKG #1: Attestation: I personally reviewed and interpreted this ECG as follows: ECG completion date: 09/17/25 ECG completion time: 16:53 EKG Interpretation: normal rate, sinus rhythm, no ectopy, no ST changes, normal QRS, NL axis and no acute changes Discharge Plan Discharge Patient Language: Telugu Prescriptions: No Action albuterol sulfate 90 mcg/actuation HFA aerosol inhaler 2 puff inhalation QID PRN (Reason: shortness of breath or wheezing) Qty: 8.5 0RF sucralfate [Carafate] 1 gram tablet 1 g PO BID 30 Days Qty: 60 0RF fluoxetine 40 mg capsule 40 mg PO DAILY atorvastatin 80 mg tablet 80 mg PO DAILY cetirizine 10 mg tablet 10 mg PO DAILY sumatriptan succinate 50 mg tablet PO omeprazole 40 mg capsule,delayed release(DR/EC) 40 mg PO DAILY carvedilol 3.125 mg tablet 3.125 mg PO DAILY famotidine 20 mg tablet 20 mg PO DAILY losartan 25 mg tablet 25 mg PO DAILY montelukast 10 mg tablet 10 mg PO DAILY fluticasone propionate [Flovent HFA] 220 mcg/actuation HFA aerosol inhaler 1 puff INHALATION PRN PRN (Reason: Shortness Of Breath Or Wheezing) hydrochlorothiazide 25 mg tablet 25 mg PO DAILY clorazepate dipotassium 7.5 mg tablet 7.5 mg PO DAILY budesonide-formoterol [Symbicort] 160-4.5 mcg/actuation HFA aerosol inhaler INHALATION DAILY ipratropium-albuterol 0.5 mg-3 mg(2.5 mg base)/3 mL solution for nebulization 3 ml inhalation Q6H PRN (Reason: Shortness Of Breath Or Wheezing) fluoxetine 40 mg capsule 40 mg PO DAILY Qty: 30 0RF clorazepate dipotassium 7.5 mg tablet 7.5 mg PO BID PRN (Reason: anxiety) Qty: 20 0RF azithromycin [Zithromax Z-Jose] 250 mg tablet See Rx Instructions .ROUTE .COMPLEX Qty: 6 0RF Rx Instructions: For 250 mg dose pack: take 500 mg today (day 1), then 250 mg for 4 days (days 2-5) Follow-up/Referrals: Daina,Jonathan Mcmahan NP [Primary Care Provider, Family Practice] Time of Disposition: 18:45
[2025-09-17 17:00] LABS: Hematocrit 43.1 % (35.0-42.0); Hemoglobin 13.9 g/dL (11.7-13.8); Immature Granulocyte Percent A 0.2 % (0.0-0.0); Lymphocytes Absolute Auto 1.83 K/mm3 (1.10-4.50); Mean Corpuscular HGB Conc 32.3 g/dL (32-36); Mean Corpuscular Hemoglobin 30.3 pg (27.0-31.0); Mean Corpuscular Volume 94.1 fL (78.0-102.0); Nucleated Red Blood Cells Absolute Auto 0.00 K/mm3 (0.00-0.00); Nucleated Red Blood Cells Perc 0.0 % (0-0.0); Platelet Count Result 204 K/mm3 (150-420); Red Blood Count 4.58 M/mm3 (4.20-5.40); White Blood Count 5.9 K/mm3 (4.8-10.8)
[2025-09-17 17:02] LABS: Add Urine Microscopic? NO; Appearance Urine Clear (Clear); Glucose Urine UA Negative (Negative); Leukocyte Esterase Ur Negative LEU/UL (Negative); Nitrate Urine Negative (Negative); Specific Grav Ur 1.010 (1.010-1.020)
--- NOTE | 2025-09-17 17:11 | PC.NURSE ---
Patient refuses to keep monitors on, Patient educated on importance of vitals throughout visit due her chief complaint of chest pain.
[2025-09-17 17:12] LABS: Alanine Aminotransferase 21 U/L (6-35); Albumin Level 4.7 g/dL (3.5-5.1); Alkaline Phosphatase 96 U/L (38-126); Anion Gap 10 mmol/L (4-12); Aspartate Amino Transferase 31 U/L (14-36); Blood Urea Nitrogen 30 mg/dL (7-17); Calcium 9.3 mg/dL (8.4-10.2); Carbon Dioxide 30 mmol/L (22-30); Chloride 100 mmol/L (98-107); Estimated CRCL calculation 38 ml/min; Estimated Glomerular Filt Rate 37; Glucose 122 mg/dL (65-110); Osmolality Calculated 297 mOsm/kg (285-295); Potassium 4.3 mmol/L (3.4-5.0); Sodium 140 mmol/L (137-145); Total Protein 7.8 g/dL (6.3-8.2)
[2025-09-17 17:14] LABS: INR 0.9; Partial Thromboplastin Time 24.1 Sec (23.9-30.70); Prothrombin Time 10.3 Seconds (9.50-12.1)
[2025-09-17 17:20] LABS: NT Pro B Type Natriuretic Pept 31 pg/mL (19.9-100)
[2025-09-17 17:33] LABS: Troponin I < 0.012 ng/mL (0.000-0.034)
[2025-09-17 17:45] LABS: Influenza A QL RT-PCR Negative (Negative); Influenza B QL RT-PCR Negative (Negative); RSV RNA, RT-PCR Negative (Negative); SARS-CoV-2 RNA PCR Negative (Negative)
[2025-09-17] MEDS: ENOXAPARIN 100 MG/ML SYRINGE SUB-Q (18:41)
--- NOTE | 2025-09-17 18:49 | PC.NURSE ---
Patient has allowed her blood pressure to be updated, but removed cuff when finished.
--- NOTE | 2025-09-17 19:45 | ADMGEN ---
This patient, Beverly Wniston, was admitted to 2nd Floor Room 204-1. Patient/family oriented to hospital policies and general routines including ID bracelet, bed and alarms, visiting hours, pain management, procedures, bathroom and other care routines, personal items, smoking policy, room service/diet, and visiting hours. Information on how to activate the Rapid Response Team has been discussed. Patient/Family are encouraged to report perceived risks to care and to ask questions if they do not understand what they are told or what they should do.
[2025-09-17 19:54] LABS: Troponin I < 0.012 ng/mL (0.000-0.034)
--- OUTSIDE RECORDS SUMMARY | 2025-09-17 20:15 | XMS_ITS | Encounter Summary ---
Author Organization [facility] Address [address] [place] [id number] Care Team Providers Care Vfx Artist Name Role Phone Morenita Castillo ANP-BC Unavailable [phone] Eneida Reza PAPER HANGER Primary Care Provider [phone] Encounter Details Date Type Department Care Team (Late st Contact Info) Description 04/08/2023 Hospital Follow-up Call [facility] [address] [place] [address] Monet Urban, RN Social History [...] declined 04/05/2023 Social Connection and Isolation Panel Answer Date Recorded In a typical week, how many times do you talk on the phone with family, friends, or neighbors? Patient declined 04/05/2023 How often do you get togethe r with friends or relatives? Patient declined 04/05/2023 How often do you attend yazidism or restoration serv ices? Patient declined 04/05/2023 Do you belong to any clubs o r organizations such as yazidism groups, unions, fraternal or athletic groups, or [...] medical care, and heating? Patient declined 04/05/2023 [facility] - [facility] [...] place to sleep or slept in a longterm (including now)? 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 Answer Date of Assessment Author Status Yes 04/05/2023 12:00 AM CDT PascualMoiz butler, R N Active * Do you have serious difficulty walking or climbing stairs? Answer Date of Assessment Author Status Yes 04/05/2023 12:30 AM CDT Moiz Garner R N Active * Do you have difficulty dressing or bathing? Answer Date of Assessment Author Status Yes 04/05/2023 12:30 AM CDT PascualMoiz, R N Active * Because of a physical, mental, or emotional condition, do you have difficulty doing errands alone such as visiting a doctor's office or shopping? Answer Date of Assessment Author Status Yes 04/05/2023 12:30 AM CDT PascualMoiz butler, R N Active documented as of this [...] documented as of this encounter Care Teams Vfx Artist Relationship Specialty Start Date End Date Eneida Reza, NONA [address] [facility] [address] [place] [phone] PCP - General NURSE PRACTITIONER 04/05/23 Morenita Castillo, ANP- [address] [facility] [address] [place] [id number] Vascular/Associate Application Developer Nurse Practitioner Family 09/18/19 documented as of this encounter
--- OUTSIDE RECORDS SUMMARY | 2025-09-17 20:15 | XMS_ITS | Clinical Summary ---
Author Organization [facility] Address [address] [place] [address] Care Team Providers Care Civil Preparedness Officer Name Role Phone Jonathan Morenita Jessie ANP-BC Unavailable [phone] Eneida Reza CERTIFIED PERFORMANCE TECHNOLOGIST Primary Care Provider [phone] Allergies Active Allergy Reactions Criticality Noted Date Comments Tape Hives Medium 09/10/2019 Must use paper tape Bee Venom Anaphylaxis High 09/09/2019 [place] Shortness of Breath, Other (see comment) High [...] Noted Date Diagnosed Date COPD (chronic obstructive pulmonary disease) 03/2023 Chest pain 05/06/2023 Assessment & Plan (05/08/2023 [...] intensity statin therapy. SBO (small bowel obstruction) 11/19/2019 Shortness of breath 09/10/2019 Dyspnea 09/10/2019 NSTEMI (non-ST elevated myocardial infarction) 1 11/09/2018 Assessment & Plan (04/07/2023 11:50 AM CDT): Unstable angina/NSTEMI, patient with CAD and continued smoking. Now s/p PCI stent of diagonal branch. Continue DAPT. She has LV dysfunction. Start on ACEI. Coronary artery disease invo lving northway coronary artery of northway heart without angina pectoris 09/09/2019 Assessment & [...] smoking, she understood and verbalized her understanding. Immunizations Immunization Administration Dates Next Due Pneumococcal [...] declined 04/05/2023 How often do you attend gnosticist or presybeterian serv ices? Patient declined 04/05/2023 Do you belong to any clubs o r organizations such as gnosticist groups, unions, fraternal or athletic groups, or [...] place to sleep or slept in a half-way (including now)? 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 Gender Identity Not on file Sexual Orientation [...] C 02/06/1972 DTaP, Tdap and Td Vaccines (1 - Tdap) 1973 Lung Cancer Screening 02/06/2004 Zoster Vaccines (1 of 2) 02/06/2004 RSV Immunization or 60+ Years (1 - Risk 60-74 years 1-dose series) 2014 Dexa Scan (General) 2019 Mammogram Screening 11/17/2020 11/17/2018 ASCVD LDL 04/05/2024 04/05/2023, 05/2019, 09/09/2019 COVID-19 Vaccine ( - 2024- season) 2025 Influenza Adult (#1) 2025 09/09/2019, 11/10/2018, 08/22/2015, Additional history exists Pneumococcal Vaccine: 50+ Years Completed 09/11/2019, 08/22/2015, 09/13/2014 Hepatitis A Vaccines Aged Out No long er eligible based on patient's age to complete this topic Meningococcal B Vaccine Aged Out No l onger eligible based on patient's age to complete this topic Meningococcal Vaccine Aged Out No robert trav eligible based on patient's age to complete this topic RSV Immunizations Under 20 Months Aged Out No longer eligible based on patient's age to complete this topic Goals Goal Patient Goal Type Associated Problems Recent Progress Patient-Stated? Author Safety Patient/family will have appropriate support at home upon discharge Lifestyle No Marialuisa Cruz, RN Medical Devices Implanted Type Area Trust Vault Clerk Device Identifier Shelf Expiration Date Model / Serial / Lot Cv Xience Laura Chris-Rca-2018 Implanted:04/2019 by Jaden Hogue MD (Quantity not on file) Stent Coronary RCA SON VASCULAR 02/02/2020 [id number] / / [id number] Cv Xience Laura Chris-Rca-2018 Implanted:04/2019 by Jaden Hogue MD (Quantity not on file) Stent Coronary RCA SON VASCULAR 04/26/2020 [id number] / / [id number] Cv Orsiro [place] Chris-Lad- 023 Implanted:01/2023 by Sherie Natarajan MD (Quantity not on file) Stent Coronary LAD BIOTRONIK 12/01/2024 [id number] / / [id number] Procedures Procedure Name Priority Date/Time Associated Diagnosis Comments LIPID PANEL Routine 04/05/2023 5:14 AM CDT from Last 3 Months or Most Recently Relevant to Health Maintenance Results * LIPID PANEL (04/05/2023 5:14 AM CDT) CHOLESTEROL 145 MG/DL 04/05/2023 6:18 AM CDT [facility] Comment:DESIRABLE: <200 TRIGLYCERIDES 206 MG/DL 04/05/2023 6:18 AM CDT [facility] Comment:200-499 HIGH HDL 53 >49 MG/DL 04/05/2023 6:18 AM CDT [facility] LDL (CALCULATED) 51 MG/DL 04/05/20 6:18 AM CDT [facility] Comment:<100 OPTIMAL VLDL CALCULATION 41 MG/DL 04/05/20 6:18 AM CDT [facility] Comment:REFERENCE RANGE NOT ESTABLISHED CHOL/HDL RATIO 2.7 04/05/2023 6:18 AM CDT [facility] Comment:REFERENCE RANGE NOT ESTABLISHED LDL/HDL 1.0 04/05/2023 6:18 AM CDT [facility] Comment:REFERENCE RANGE NOT ESTABLISHED NON HDL CHOLESTEROL 92 MG/DL 04/05/2023 6:18 AM CDT [facility] Comment:REFERENCE RANGE NOT ESTABLISHED 04/05/2023 5:14 AM CDT Viraj Osorio MD LABORATORY Final Result [facility] [address] [place] [address], [phone] from Last 3 Months or Most Recently Relevant to Health Maintenance Insurance [place], [place] [id number] [place] [address] [facility] Advance Directives * Full Code (Latest [...] 2:31 PM 09/10/2019 12:57 PM Care Teams Civil Preparedness Officer Relationship Specialty Start Date End Date Eneida Reza NP [address] [phone] PCP - General NURSE PRACTITIONER 04/05/23 Morenita Castillo, ANP-BC [address] [facility] [address] [place] [address] Vascular/Elementary Ell Teacher Nurse Practitioner Family 09/18/19
--- OUTSIDE RECORDS SUMMARY | 2025-09-17 20:15 | XMS_ITS | Encounter Summary ---
Author Organization [facility] Address [address] [place] [id number] Care Team Providers Care Vp Talent Management Name Role Phone Adolfo Beltran MD Primary Care Provider [phone] Morenita Castillo-BC Unavailable [phone] Eneida Reza BLUE SPLIT TRIMMER Primary Care Provider [phone] Encounter Details Date Type Department Care Team (Late st Contact Info) Description 07/27/2020 Abstract [facility] [address] [place] [address] Morenita Castillo ANP-BC [address] [facility] [address] [place] [address] Social History Tobacco Use Types [...] AM CDT Legal Sex Female 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 Answer Date of Assessment Author Status No 11/19/2019 4:22 AM DIGITAL COMMENTATOR Activ e * Do you have serious [...] documented as of this encounter Care Teams Vp Talent Management Relationship Specialty Start Date End Date Adolfo Beltran MD PCP - General FAMILY PRACTICE 09/09/19 04/04/23 Eneida Reza NP [address] [address] PCP - General NURSE PRACTITIONER 04/05/23 Morenita Castillo, ANP- [address] [address] Vascular/Cutting Tool Sharpener Nurse Practitioner Family 09/18/19 documented as of this encounter
[2025-09-17] MEDS: ACETAMINOPHEN 325 MG TABLET 650 MG PO (20:36)
[2025-09-17] MEDS: guaiFENesin 12 HR 600 MG TABCR 1200 MG PO (20:36)
[2025-09-17 22:21] LABS: Troponin I < 0.012 ng/mL (0.000-0.034)
[2025-09-17] MEDS: SODIUM CHLORIDE 0.9% IV 1,000 ML 100 ML IV CONT (23:27)
[2025-09-17] MEDS: HYDROcodone/acetaminophen (*CRX) 5-325 MG TABLET 1 TAB PO (23:40)
[2025-09-18] VITALS: BP 124/88; PULSE 82; PULSE 98; RESP 18; TEMP 36.3; O2SAT 100
--- NOTE | 2025-09-18 01:02 | PC.NURSE ---
Dr. Montilla notified of pt needing a sleeping pill; New orders received and noted.
[2025-09-18] MEDS: ALPRAZolam (*CRX) 0.5 MG TABLET PO (01:47)
[2025-09-18 04:00] VITALS: PULSE 82
[2025-09-18 05:22] LABS: Hematocrit 41.1 % (35.0-42.0); Hemoglobin 12.4 g/dL (11.7-13.8); Immature Granulocyte Percent A 0.3 % (0.0-0.0); Lymphocytes Absolute Auto 2.65 K/mm3 (1.10-4.50); Mean Corpuscular HGB Conc 30.2 g/dL (32-36); Mean Corpuscular Hemoglobin 30.9 pg (27.0-31.0); Mean Corpuscular Volume 102.5 fL (78.0-102.0); Nucleated Red Blood Cells Absolute Auto 0.00 K/mm3 (0.00-0.00); Nucleated Red Blood Cells Perc 0.0 % (0-0.0); Platelet Count Result 173 K/mm3 (150-420); Red Blood Count 4.01 M/mm3 (4.20-5.40); White Blood Count 6.2 K/mm3 (4.8-10.8)
[2025-09-18 05:32] LABS: Alanine Aminotransferase 17 U/L (6-35); Albumin Level 4.0 g/dL (3.5-5.1); Alkaline Phosphatase 95 U/L (38-126); Anion Gap 8 mmol/L (4-12); Aspartate Amino Transferase 25 U/L (14-36); Blood Urea Nitrogen 29 mg/dL (7-17); Calcium 8.5 mg/dL (8.4-10.2); Carbon Dioxide 26 mmol/L (22-30); Chloride 104 mmol/L (98-107); Estimated CRCL calculation 45 ml/min; Estimated Glomerular Filt Rate 45; Glucose 114 mg/dL (65-110); Osmolality Calculated 292 mOsm/kg (285-295); Potassium 4.0 mmol/L (3.4-5.0); Sodium 138 mmol/L (137-145); Total Protein 6.8 g/dL (6.3-8.2)
[2025-09-18 05:33] LABS: INR 1.0; Partial Thromboplastin Time 29.6 Sec (23.9-30.70); Prothrombin Time 10.6 Seconds (9.50-12.1)
[2025-09-18] MEDS: ENOXAPARIN 100 MG/ML SYRINGE SUB-Q (07:20)
[2025-09-18 08:00] VITALS: BP 102/77; PULSE 72; PULSE 74; RESP 18; TEMP 36.4; O2SAT 94
[2025-09-18] MEDS: AZITHROMYCIN 250 MG TABLET 500 MG PO (08:15)
[2025-09-18] MEDS: SUCRALFATE 1 GM TABLET PO (08:16)
[2025-09-18] MEDS: PANTOPRAZOLE 40 MG TABLET PO (08:16)
[2025-09-18] MEDS: guaiFENesin 12 HR 600 MG TABCR 1200 MG PO (08:16)
[2025-09-18] MEDS: MONTELUKAST SODIUM 10 MG TABLET PO (08:16)
[2025-09-18] MEDS: ATORVASTATIN 40 MG TABLET 80 MG PO (08:16)
--- NOTE | 2025-09-18 09:20 | PM.SD2 ---
Same Day Admit/Disch: HPI History of Present Illness Chief complaint: chest pain Narrative: Beverly Winston is a 70 year old female with PMH of CAD, history fo 2 IA's last one in 2022 with 3 stents placed, HLD, HTN, COPD and OAB. Patient presented to the ER with complaints of chest pain and shortness of breath. patient also reported a cough with clear phlegm. Patient was given aspirin and nitro by EMS. In the ER the patient's troponin was negative and no ST changes on he EKG. CTA chest showed chronic PE, this PE was not identified in CTA patient had in April 2025. Patient was given Lovenox and was admitted for further observation. [facility] Past Medical History Medical History Hypertension Dyslipidemia CAD (coronary artery disease) COPD (chronic obstructive pulmonary disease) Social History Social History Smoking packs per day: 0.5 Smoking cigarettes per day: 10.0 Years smoked: 54 Smoking pack-years: 27.00 Smoking status: Current every day smoker Tobacco type: cigarettes Second hand tobacco smoke exposure: No Alcohol intake: former Substance use: former Lack of Transportation: No Lack of Food: Never True Current Housing: I Have Housing Concerned About Future Housing: No Difficulty Paying Gas/Electric Bills: No Difficulty Paying for Meds: No Currently Unemployed: No Education: High School Diploma/GED Difficulty w/ Childcare or Family Care: No Spiritual care concerns: No Same Day Admit/Disch: Med Pre-admit Medications Home Medications ?Medication ?Instructions ?Recorded ?Confirmed ?Type albuterol sulfate 90 mcg/actuation 2 puff inhalation QID PRN 10/02/22 09/18/25 Rx aerosol inhaler shortness of breath or wheezing #8.5 grams sucralfate 1 gram tablet (Carafate) 1 g PO BID 30 days #60 tabs 10/12/22 09/18/25 Rx atorvastatin 80 mg tablet 80 mg PO DAILY 11/08/22 09/18/25 History budesonide-formoterol HFA 160 1 puff inhalation Q12H 11/08/22 09/18/25 History mcg-4.5 mcg/actuation aerosol inhaler (Symbicort) cetirizine 10 mg tablet 10 mg PO DAILY 11/08/22 09/18/25 History fluticasone propionate 220 1 inh inhalation Q12H Shortness Of 11/08/22 09/18/25 History mcg/actuation HFA aerosol inhaler Breath Or Wheezing (Flovent HFA) hydrochlorothiazide 25 mg tablet 25 mg PO DAILY 11/08/22 09/18/25 History ipratropium 0.5 mg-albuterol 3 mg 3 ml inhalation Q6H PRN Shortness 11/08/22 09/18/25 History (2.5 mg base)/3 mL nebulization Of Breath Or Wheezing soln montelukast 10 mg tablet 10 mg PO DAILY 11/08/22 09/18/25 History omeprazole 40 mg capsule,delayed 40 mg PO DAILY 11/08/22 09/18/25 History release apixaban 5 mg (74 tabs) tablets in See Rx Instructions PO .COMPLEX 09/18/25 Rx a dose pack ([employer] DVT-PE Treat #74 ea 30D Start) azithromycin 250 mg tablet 250 mg PO DAILY #4 tabs 09/18/25 Rx Review of Systems Review of Systems All systems reviewed & are unremarkable except as noted in HPI and below Exam Const: General: comfortable and no acute distress HENMT: Face/Nose/Sinus: Normal nares present Mouth: Yes moist mucous membranes Eyes: General: appearance normal, both eyes and all related structures Sclera: sclerae normal Neck: Neck: supple Resp: Effort & Inspection: normal respiratory effort Auscultation: clear to auscultation bilaterally Cardio: Rate: regular rate Rhythm: regular rhythm GI: GI Palp: Yes Soft to palpation Auscultation: normal bowel sounds Skin: General skin exam: normal color and no rashes or lesions noted Neuro: General: gait normal Speech: normal speech Motor exam (neuro): 5/5 motor strength present throughout Sensory Exam: normal sensation Extrem: General: normal to inspection Psych: Mental Status: mental status grossly normal Affect: normal affect DS: Data Data Completed and Pending Completed studies during hospitalization: CT Scan Report Signed Patient: Beverly Winston : 1955 MR#: [id number] Age: 70 Acct:[id number] Loc: [facility] ADM Date: 09/17/[address]: Ordering Physician: Juan Carlos Montilla MD Date of Service: 09/17/25 Procedure(s): CTA chest PE protocol Accession Number(s): [id number] cc: Daina, Jonathan Mcmahan APRN; Juan Carlos Montilla MD~ CTA chest PE protocol HISTORY:chest pain, shortness of breath, elevated d-dimer . COMPARISON: None. 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 Post-processing on an independent workstation was performed to reconstruct MIP images for evaluation of the thoracic vasculature. FINDINGS: String-like filling defect within the posterior right lower lobe pulmonary artery suggestive of chronic pulmonary emboli. No aortic aneurysm or dissection. There are diffuse centrilobular emphysema. Mild subpleural reticulation are noted at the lung bases. No discrete pulmonary nodule. No focal consolidation, pleural effusions or pneumothorax. There is no axillary, mediastinal or hilar adenopathy. Limited evaluation of the upper abdomen demonstrates no gross abnormalities. Review of bone windows demonstrates no osteoblastic or lytic lesions. IMPRESSION: Chronic pulmonary embolus within the posterior right lower lobe pulmonary artery. Extensive centrilobular emphysema. All CT scans at this facility are performed using low dose modulation techniques as appropriate to perform exam including the following: automated exposure control; use of iterative reconstruction technique; adjustment of the mA and/or kV according to patient size (this includes techniques or standardized protocols for targeted exams where dose is matched to indication/reason for exam). Reviewed, dictated and finalized at location S. [employer] Labs on day of discharge: Labs from last 24 hours 09/18/25 09/17/25 09/17/25 05:04 21:36 19:19 WBC 6.2 RBC 4.01 L Hgb 12.4 Hct 41.1 MCV 102.5 H MCH 30.9 MCHC 30.2 L RDW 13.4 Plt Count 173 MPV 8.7 L Immature Gran % (Auto) 0.3 H Neut % (Auto) 44.7 L Lymph % (Auto) 42.9 H Dundy % (Auto) 8.1 Eos % (Auto) 3.2 Baso % (Auto) 0.8 Lymph # (Auto) 2.65 Dundy # (Auto) 0.50 Eos # (Auto) 0.20 Baso # (Auto) 0.05 Abs Immat Gran (auto) 0.02 H Absolute Neuts (auto) 2.75 Absolute Nucleated RBC 0.00 Nucleated RBC % 0.0 PT 10.6 INR 1.0 APTT 29.6 D-Dimer Sodium 138 Potassium 4.0 Chloride 104 Carbon Dioxide 26 Anion Gap 8 BUN 29 H Creatinine 1.19 H Estim Creat Clear Calc 45 Estimated GFR 45 L Glucose 114 H Calculated Osmolality 292 Lactic Acid Calcium 8.5 Total Bilirubin 1.3 AST 25 ALT 17 Alkaline Phosphatase 95 Troponin I < 0.012 < 0.012 NT-Pro-B Natriuret Pep Total Protein 6.8 Albumin 4.0 Urine Color Urine Appearance Urine pH Ur Specific Viking Urine Protein Urine Glucose (UA) Urine Ketones Ur Blood (Man) Urine Nitrate Urine Bilirubin Urine Urobilinogen Leukocyte Esterase Rfl Influenza A (RT-PCR) Influenza B (RT-PCR) RSV (RT-PCR) SARS-CoV-2 RNA (RT-PCR) 09/17/25 09/17/25 16:59 16:56 WBC 5.9 RBC 4.58 Hgb 13.9 H Hct 43.1 H MCV 94.1 MCH 30.3 MCHC 32.3 RDW 13.5 Plt Count 204 MPV 8.4 L Immature Gran % (Auto) 0.2 H Neut % (Auto) 59.4 Lymph % (Auto) 31.2 Dundy % (Auto) 5.6 Eos % (Auto) 2.7 Baso % (Auto) 0.9 Lymph # (Auto) 1.83 Dundy # (Auto) 0.33 Eos # (Auto) 0.16 Baso # (Auto) 0.05 Abs Immat Gran (auto) 0.01 H Absolute Neuts (auto) 3.49 Absolute Nucleated RBC 0.00 Nucleated RBC % 0.0 PT 10.3 INR 0.9 APTT 24.1 D-Dimer 4.03 H Sodium 140 Potassium 4.3 Chloride 100 Carbon Dioxide 30 Anion Gap 10 BUN 30 H Creatinine 1.40 H Estim Creat Clear Calc 38 Estimated GFR 37 L Glucose 122 H Calculated Osmolality 297 H Lactic Acid 1.3 Calcium 9.3 Total Bilirubin 1.7 H AST 31 ALT 21 Alkaline Phosphatase 96 Troponin I < 0.012 NT-Pro-B Natriuret Pep 31 Total Protein 7.8 Albumin 4.7 Urine Color Yellow Urine Appearance Clear Urine pH 6.5 Ur Specific Viking 1.010 Urine Protein Negative Urine Glucose (UA) Negative Urine Ketones Negative Ur Blood (Man) Negative Urine Nitrate Negative Urine Bilirubin Negative Urine Urobilinogen 0.2 Leukocyte Esterase Rfl Negative Influenza A (RT-PCR) Negative Influenza B (RT-PCR) Negative RSV (RT-PCR) Negative SARS-CoV-2 RNA (RT-PCR) Negative DS: Summary Hospital Course Reason for hospitalization: chest pain Hospital Course: Beverly Winston is a 70 year old female with PMH of CAD, history fo 2 IA's last one in 2022 with 3 stents placed, HLD, HTN, COPD and OAB. Patient presented to the ER with complaints of chest pain and shortness of breath. patient also reported a cough with clear phlegm. Patient was given aspirin and nitro by EMS. In the ER the patient's troponin was negative and no ST changes on he EKG. CTA chest showed chronic PE, this PE was not identified in CTA patient had in April 2025. Patient was given Lovenox and was admitted for further observation. Patient's repeat troponin was negative. Unable to complete a venous Doppler of BLE to rule out DVTs, patient will need to have this completed as an outpatient. Patient voices understanding and information placed on discharge orders. Patient will transition to Eliquis, starter pack sent to pharmacy. Patient was treated for acute sinusitis with PO azithromycin and patient with discharge with 4 days to complete the course. Patient is chest pain free, no dyspnea and has remained on room air. Patient discharged home and will follow up with her PCP within 1-2 weeks of discharge. Patient will need to complete 3 months treatment with Eliquis and will ask her PCP for refills. Time Spent with Patient Time attestation: Total time spent providing and/or coordinating discharge services: 25 Minutes DS: Admitting Diagnosis Discharge Date 09/18/2025 Admitting Diagnosis pulmonary embolism ANY sinusitis chest pain COPD DS: Discharge Diagnosis Discharge Diagnosis (1) Pulmonary embolism: Qualifiers: Acute cor pulmonale presence: unspecified Chronicity: chronic Pulmonary embolism type: unspecified Qualified Code(s): I27.82 - Chronic pulmonary embolism Code(s): I26.99 - Other pulmonary embolism without acute cor pulmonale Status: Acute Assessment and Plan: patient presented with chest pain and shortness of breath d-dimer elevated 4.03 s/p CTA chest - Chronic pulmonary embolus within the posterior right lower lobe pulmonary artery. patient had a CTA chest in April 2025 which was negative for PE started on Lovenox transition to PO Eliquis, starter pack sent to pharmacy unable to obtain venous doppler today, patient wants to go home, patient instructed to ask her PCP to order a venous doppler of the BLE within 1 week of discharge, patient voices understanding of the importance of having this test completed. patient is chest pain free, no dyspnea, on room air (2) ANY (acute kidney injury): Code(s): N17.9 - Acute kidney failure, unspecified Status: Acute Assessment and Plan: BUN 30, creatinine 1.40 on arrival IV fluids improved this AM, BUN 29, creatinine 1.19 encourage PO intake improved (3) Sinusitis: Qualifiers: Chronicity: unspecified Sinusitis location: unspecified location Qualified Code(s): J32.9 - Chronic sinusitis, unspecified Code(s): J32.9 - Chronic sinusitis, unspecified Status: Acute Assessment and Plan: started on PO azithromycin in the ED continue azithromycin 250 mg PO daily x 4 days on discharge. (4) Chest pain: Code(s): R07.9 - Chest pain, unspecified Status: Acute Assessment and Plan: s/p aspirin and nitro per EMS symptoms were resolved on arrival to hospital EKG without acute changes troponin x 2 negative (5) COPD (chronic obstructive pulmonary disease): Qualifiers: COPD type: unspecified COPD Qualified Code(s): J44.9 - Chronic obstructive pulmonary disease, unspecified Code(s): J44.9 - Chronic obstructive pulmonary disease, unspecified Status: Acute Assessment and Plan: no acute exacerbation continue home inhalers Discharge Plan Discharge Attending physician on discharge: Kranthi Breaux Discharging Clinician: Alice Ridley Anticipated Discharge Date/Time: 09/18/25 09:19 Patient Disposition: Home Activity: as tolerated Diet: heart healthy Discharge Instructions: Please take the Eliquis (blood thinner) as prescribed. Please follow up with your PCP for refills to complete 3 months of treatment. Your PCP will decide if you need to continue taking the blood thinner fci. Please ask your PCP to order venous doppler's of your legs. This is an ultrasound to rule out blood clots in your legs. Your PCP can schedule this test to be done as an outpatient at our facility. Patient Instructions: Antibiotic Form, Azithromycin (By mouth), Apixaban (By mouth), Pulmonary Embolism (DC) Patient Language: Comoran Stand Alone Forms: General Discharge Information Follow-up/Referrals: Daina,Jonathan Mcmahan, INSTRUMENT ASSEMBLER [Primary Care Provider, Family Practice] - 1 week Referral Note: Please call for an appointment to be seen within 1 week of discharge Discharge Medications: [employer] DVT-PE Treat 30D Start 5 mg (74 tabs) tablets,dose pack See Rx Instructions .ROUTE .COMPLEX Qty: 74 0RF Rx Instructions: orally per package directions azithromycin 250 mg tablet 250 mg PO DAILY Qty: 4 0RF Rx Instructions: start 09/19/2025 Continued albuterol sulfate 90 mcg/actuation HFA aerosol inhaler 2 puff inhalation QID PRN (Reason: shortness of breath or wheezing) Qty: 8.5 0RF sucralfate [Carafate] 1 gram tablet 1 g PO BID 30 Days Qty: 60 0RF atorvastatin 80 mg tablet 80 mg PO DAILY cetirizine 10 mg tablet 10 mg PO DAILY omeprazole 40 mg capsule,delayed release(DR/EC) 40 mg PO DAILY montelukast 10 mg tablet 10 mg PO DAILY fluticasone propionate [Flovent HFA] 220 mcg/actuation HFA aerosol inhaler 1 inh INHALATION Q12H hydrochlorothiazide 25 mg tablet 25 mg PO DAILY budesonide-formoterol [Symbicort] 160-4.5 mcg/actuation HFA aerosol inhaler 1 puff INHALATION Q12H ipratropium-albuterol 0.5 mg-3 mg(2.5 mg base)/3 mL solution for nebulization 3 ml inhalation Q6H PRN (Reason: Shortness Of Breath Or Wheezing) Date of admission: 09/17/25 18:53 Primary Care Provider: LopezJonathan Admitting Provider: Kranthi Breaux Attending physician on admission: Kranthi Breaux Condition: Stable Quality VTE Prophylaxis VTE prophylaxis: pharmacologic ordered
--- NOTE | 2025-09-18 09:45 | PC.NURSE ---
Discharge instructions went over with patient, states understanding of instructions. Awaiting patient transportation.
--- NOTE | 2025-09-18 10:15 | PC.NURSE ---
Patient discharged from facility at 1015, transported by family via personal vehicle, left in stable condition.
--- NOTE | 2025-09-20 10:26 | PC.NURSE ---
Discharge call back complete, patient did not receive medications at her local pharmacy, [facility], call to [facility] and they will call [facility] for the scripts, no questions regarding the medications.
[2025-09-21 13:42] LABS: Bilirubin,Total 0.7 mg/dL (0.2-1.3)
[2025-09-21 13:48] LABS: Bilirubin,Total 0.2 mg/dL (0.2-1.3)
== END 2025-09-18 10:15 | disposition home or self-care (01) ==
LOC: CHSED 18:48 → CHS2ND 09-18 09:00
PROVIDERS: Admitting Provider Internal Medicine; Emergency Provider Emergency Medicine; PCP Nurse Practitioner Family; Visit Provider Internal Medicine
DX: I27.82 Chronic pulmonary embolism (principal); N17.9 Acute kidney failure, unspecified; J32.9 Chronic sinusitis, unspecified; I25.10 Atherosclerotic heart disease of native coronary artery without angina pectoris; I10 Essential (primary) hypertension; E78.5 Hyperlipidemia, unspecified; J44.9 Chronic obstructive pulmonary disease, unspecified; I25.2 Old myocardial infarction; N32.81 Overactive bladder; F17.210 Nicotine dependence, cigarettes, uncomplicated; Z20.822 Contact with and (suspected) exposure to COVID-19; Z95.5 Presence of coronary angioplasty implant and graft; Z79.51 Long term (current) use of inhaled steroids; Z79.52 Long term (current) use of systemic steroids
CPT/HCPCS: 36415; 71045; 71275; 80053; 81003; 83605; 83880; 84484; 85025; 85380; 85610; 85730; 87637; 93005; 96360; 96361; 96372; 99285; A9270; G0378; J1650; J7030; Q9967